=== PATIENT | male | born 1965 | race Caucasian/White ===

== ENCOUNTER 2022-11-10 10:43 | Emergency (ER) | payer OTHER, SELFPAY ==
[2022-11-10 10:45] VITALS: BP 173/97; PULSE 71; RESP 14; TEMP 36.1; O2SAT 97; BMI 27.9
--- NOTE | 2022-11-10 11:12 | MRI_ITS ---
INDICATION: Low back pain with right sided sciatica EXAMINATION: MR Spine Lumbar W/O Contrast TECHNIQUE: Multiplanar and multisequence MR images of the lumbar spine. IV Contrast Dosage and Agent: None. COMPARISON: None. FINDINGS: VERTEBRAE: Vertebral body heights are preserved. Modic type II endplate change and vacuum phenomenon at the L5-S1 level. No marrow edema or fracture. VERTEBRAL ALIGNMENT: No spondylolisthesis. There is preservation of the normal lumbar lordosis. CORD: Normal position and signal intensity of the conus medullaris. Conus terminates normally at the L1-2 disc space level. Cauda equina are intact. SOFT TISSUES: Aorta is normal in caliber. No hydronephrosis. AXIAL IMAGES: L1-2, L2-3: Unremarkable. L3-4: Small left central disc protrusion with left subarticular recess narrowing and mild displacement of the left traversing L4 nerve root. No significant overall spinal canal stenosis. Minimal left foraminal narrowing. L4-5: Diffuse disc bulging. Mild facet hypertrophy and ligamentum flavum thickening. Mild subarticular recess narrowing and spinal canal stenosis. Small endplate osteophyte formation. Mild foraminal narrowing bilaterally. L5-S1: Right central disc protrusion causing compression of the right S1 nerve root. Disc material measures approximately 7.5 mm AP. No significant overall spinal canal compromise. Small endplate osteophyte formation, asymmetric on the right. No significant foraminal narrowing. MRI/Spine Lumbar (Routine) IMPRESSION: L5-S1 disc protrusion with right S1 nerve root impingement. L3-4 disc protrusion with mild mass effect upon the left L4 traversing nerve root. Electronically Signed: Tomas Casas MD at 15:15 EDT ,
--- NOTE | 2022-11-10 11:13 | EDS_ITS ---
HPI History of Present Illness Chief Complaint: Back Detail of Chief Complaint: Low back pain radiating to right buttock and leg. Informant: patient and spouse/S.O. Onset/Context/Timing Onset: Weeks Context: Gradual Onset Quality: Sharp Current Severity: Mild Maximum Severity: Moderate Worsened by: improves with Movement Relieved by: Remaining Still Associated Symptoms Associated Symptoms: Radiation to Right Leg; Negative for Numbness, Tingling, Radiation to Left Leg, Fever, Abdominal Pain, Dysuria, Unable to Ambulate, Unable to Transfer, Urinary Retention, Urinary Incontinence, Constipation or Fecal Incontinence Narrative Narrative: 56-year-old male prior cervical disc history with cervical discectomy and possible fusion. Complaining about a month-long history of lower back pain last several days been increasing in pain with radiation to his right buttock and right leg. No weakness. No numbness. No bowel or bladder incontinence or retention. No prior lower back surgery. Denies any fever. No fall or trauma. Was at the chiropractor today when he went Prior similar symptoms: No Recent Illness/Hospitalization: No PFSH PFSH Home Medications hydrocodone-acetaminophen 5-325mg 5mg-325mg 1 tab PO Q4H PRN PRN Pain 4 days #25 TABLETS 11/10/22 [Rx Last Taken Unknown] prednisone 20 mg tablet 40 mg PO QODAY Lumbar disc 10 days #10 tabs 11/10/22 [Rx Last Taken Unknown] Allergy/AdvReac Type Severity Reaction Status Date / Time No Known Allergies Allergy Verified 11/10/22 10:44 Social History Smoking Status: Current every day smoker tobacco type: cigarettes ROS ROS ED ROS Narrative Low back pain. No recent illness. Review of Systems ROS Unobtainable: Denies due to encephalopathy Constitutional Constitutional ED: Denies chills or fever(s) Eyes Eyes: Denies blurry vision ENT ENT ED: Denies ear pain Cardiovascular Cardiovascular: Denies chest pain or palpitations Respiratory/Chest Respiratory/Chest: Denies dyspnea Gastrointestinal Gastrointestinal: Denies abdominal pain Genitourinary Genitourinary ED: Denies dysuria or hematuria Musculoskeletal Musculoskeletal: Reports back pain; Denies arthralgias, myalgias or neck pain Integumentary Denies abscess or Abrasions Neurologic Neurologic: Denies headache(s) Psychiatric Psychiatric: Denies anxiety Endocrine Endocrinology: Denies cold intolerance Hematologic/Lymphatic Hematologic/Lymphatic: Denies easy bleeding or easy bruising Allergic/Immunologic Allergic/Immunologic ED: Denies mouth swelling or tongue swelling EXAM Physical Exam Narrative Exam Narrative: 56-year-old male vital signs stable afebrile. Does not look septic toxic. at bedside. He is sitting upright in bed. H EENT exam unremarkable. Neck nontender. Trachea midline. Lungs clear to auscultation bilaterally. Heart regular rhythm no murmur. Chest were nontender. Abdomen soft nontender. Back no reproducible back or SI joint tenderness. Normal motor strength and sensation both upper and lower extremities. Negative straight leg raise. Normal medial thigh sensation. 5 out of 5 dorsi and plantarflexion. Neurologically is awake alert with no focal deficits. No weakness or numbness. Const Vital Signs: 11/10/22 10:45 11/10/22 14:06 Temperature 96.9 F L Temperature Source Temporal Pulse Rate 71 Respiratory Rate 14 18 Blood Pressure 173/97 H Blood Pressure Mean 122 Pulse Ox 97 97 Oxygen Delivery Method Room Air Positive well nourished and well developed; Negative for obese, cachectic, contractures or unkempt General Appearance ED: well developed and NAD; Negative for unkempt, cachectic, contractures or pallor Nutritional Appearance: Negative for cachectic or obese HEENT Reports moist mucous membranes; Denies dry mucous membranes Negative for trauma or tenderness Mouth ED: No dry mucous membranes Mouth: No dry mucous membranes Eyes PERRL and EOMs intact bilaterally General Eye ED: Negative for pale conjunctiva or scleral icterus Neck no lymphadenopathy, supple and no JVD General: Negative for tenderness Thyroid: Negative for other Chest Wall Chest: Negative for other Resp normal respiratory effort and clear to auscultation bilaterally Effort and Inspection: Negative for pain with movement Auscultation: Negative for rales, rhonchi or wheezes Cardio regular rate, regular rhythm, S1 normal heart sound, S2 normal heart sound and no murmurs Palpation: Negative for palpable S3 Rate: Negative for bradycardia or tachycardic Rhythm: Negative for abnormal rhythm Bruits: Negative for other GI normal to inspection, nondistended, normoactive bowel sounds, soft to palpation, non-tender, non-distended and no masses Inspection: Negative for abdominal distention Auscultation: Negative for hyperactive bowel sounds Palpation: Negative for tender or guarding Bladder / Kidney Exam: No other Back/Spine normal to inspection and no thoracic nor lumbar tenderness General Back: Negative for CVA tenderness Cervical Spine: Negative for cervical spine tenderness Thoracic Spine / Upper Back: Negative for paraspinal muscle tenderness Lumbar Spine / Lower Back: straight leg raise negative bilaterally; Negative for ROM limited Extremity normal to inspection and no clubbing, cyanosis or edema General Extremety ED: Negative for edema or tenderness General Extremity: Negative for edema Neuro oriented x3 and no sensory deficits noted Sensorium / Orientation: alert; Negative for confused, lethargic or stuporous Motor Exam: strength 5/5 throughout; Negative for strength abnormal Psych mental status grossly normal Appearance: Negative for unkempt Attitude: No agitated Mood & Affect: Negative for depressed, sad or tearful Skin no rashes or lesions noted and no wounds General Skin Exam: Negative for jaundice or pallor Lesions: No lesion noted Rashes: No rashes noted Trauma: Negative for abrasion or puncture Wounds: Negative for wounds noted MDM MDM MDM Narrative Medical decision making narrative: 56-year-old male with history of prior cervical disc with discectomy of his neck. Complaining about a month long history of low back pain getting worse last several days now radiating to his right leg. No weakness or numbness. No bowel or bladder incontinence. 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 He was able to get a specific diagnosis today because he is to be very careful what medications he can and cannot use to continue to drive his truck. I am concerned this may be a lumbar disc. He will be given morphine and Toradol for pain. Zofran. P.o. prednisone. And we are obtaining a lumbar spine without any contrast. That is scheduled for 230. Patient doing well at 315. I we will go over the MRI results of both he and his . To be discharged home with [place] for pain. Prednisone 40 mg a day for 10 days. Follow-up with either his prior neurosurgeon who did his neck disc surgery or Dr. Ester scott of the spine. History & Record Review Discussion w/independent historian: Patient and Significant other Radiography Diagnostic Testing: Clinical Impression(s) from Imaging Studies Lumbar Spine MRI 11/10/22 11:12 IMPRESSION: L5-S1 disc protrusion with right S1 nerve root impingement. L3-4 disc protrusion with mild mass effect upon the left L4 traversing nerve root. Electronically Signed: Tomas Casas MD at 15:15 EDT , MRI shows an L5-S1 disc protrusion with right S1 nerve root impingement which would go along with his symptoms. Also shows an L3-4 disc protrusion with mild mass effect upon the left L4 transverse nerve root. Discharge Plan Triage Chief Complaint: Back ED Provider: Edilson Dick Dx/Rx/DC Orders Clinical Impression: Acute lumbar back pain, Radiculopathy Instructions: ED Back Pain (Acute or Chronic) Prescriptions: New hydrocodone-acetaminophen 5-325 mg tablet 1 tab PO Q4H PRN PRN (Reason: Pain) 4 Days Qty: 25 0RF prednisone 20 mg tablet 40 mg PO QODAY 10 Days Qty: 10 0RF Primary Care Provider: Michaela Rojas Referrals: Robby Solis DO [Med Staff - Active Staff] - As soon as possible Michaela Rojas DO [Primary Care Provider] - Activity Restrictions/Additional Instructions: Call and follow-up with either Dr. Solis or your neurosurgeon soon as possible. Prednisone daily to help decrease the inflammation of the disc to hopefully decrease the pain. [place] for pain. Return if bowel or bladder incontinence, leg weakness or worsening pain. Disposition Disposition: Home, Self Care
[2022-11-10] MEDS: predniSONE 20 MG Tablet 60 MG PO (11:40)
[2022-11-10] MEDS: Ketorolac 30 MG/ML Syringe IV (11:41)
[2022-11-10] MEDS: Ondansetron 4 MG/2 ML Vial IV (11:41)
[2022-11-10] MEDS: morphine 8 MG/ML Syringe IV (11:41)
[2022-11-10] MEDS: morphine 8 MG/ML Syringe 6 MG IV (13:59)
[2022-11-10 14:06] VITALS: RESP 18; O2SAT 97
== END 2022-11-10 15:49 | disposition home or self-care (01) ==
PROVIDERS: Emergency Provider Emergency Medicine; PCP Internal Medicine; Visit Provider Emergency Medicine
DX: M54.50 Low back pain, unspecified (principal); F17.210 Nicotine dependence, cigarettes, uncomplicated; M54.10 Radiculopathy, site unspecified
CPT/HCPCS: 72148; 96374; 96375; 96376; 99282; A4216; J2405

== ENCOUNTER → 2022-11-25 | Outpatient (CLI) | payer OTHER, SELFPAY ==
--- NOTE | 2022-11-25 14:17 | MRI_ITS ---
STUDY: MRI LUMBAR SPINE WITHOUT CONTRAST REASON FOR EXAM: Male, 57 years old. pain -- Patient is having new symptoms coughed last week,,felt a pop, increased pain low back and downrt leg,,trouble walking TECHNIQUE: Standardized fat and water weighted pulse sequences were obtained in the sagittal and axial planes. COMPARISON: X-ray the lumbar spine dated November 12, 2022. MRI of the lumbar spine dated November 10, 2022 FINDINGS: Normal lumbar lordosis. There is no substantial scoliosis. Normal conus medullaris that terminates at the L1 level. No marrow edema or fracture or compression deformity is seen. No aggressive abnormalities are present. T12-L1: Normal endplates. Normal disc height, hydration and morphology. Normal bilateral facet joints. Normal central canal and bilateral lateral recesses. Normal bilateral intervertebral neural foramina. L1-2: Normal endplates. Normal disc height, hydration and morphology. Normal bilateral facet joints. Normal central canal and bilateral lateral recesses. Normal bilateral intervertebral neural foramina. L2-3: Normal endplates. Normal disc height, hydration and morphology. Normal bilateral facet joints. Normal central canal and bilateral lateral recesses. Normal bilateral intervertebral neural foramina. L3-4: Normal endplates mild disc desiccation and mild posterior disc space narrowing with a shallow left paracentral disc protrusion. Normal bilateral facet joints. Normal central canal and bilateral lateral recesses. Normal bilateral intervertebral neural foramina. L4-5: Normal endplates. Mild disc desiccation. Normal disc height and morphology. Mild right facet joint hypertrophy contributing to mild right foraminal stenosis with posterior nerve root impingement. Normal left neural foramen. Normal central canal and bilateral lateral recesses. L5-S1: Moderate Modic endplate degenerative signal. Diffuse disc desiccation with mild disc space narrowing. Interval enlargement of the right paracentral disc extrusion with a large and new amount of extruded material measuring 1.85 x 0.83 x 1.82 cm causing right lateral recess stenosis and severe central canal stenosis with displacement of the thecal sac to the left of midline due to mass effect. . Most of the extruded disc material is confined to the level the intervertebral disc space. Normal bilateral intervertebral neural foramina. Normal visualized sacral ala. Normal visualized paraspinous soft tissue structures. MRI/Spine Lumbar (Routine) IMPRESSION: 1. L5-S1 interval enlargement of the right paracentral disc extrusion with a large and new amount of extruded material measuring 1.85 x 0.83 x 1.82 cm causing right lateral recess stenosis and severe central canal stenosis with displacement of the thecal sac to the left of midline due to mass effect. 2. Multilevel degenerative changes, as described above. Electronically Signed: Malvin Duran MD at 16:13 EDT ,
== END | disposition home or self-care (01) ==
PROVIDERS: PCP Internal Medicine; Referring Provider Orthopaedic Surgery; Visit Provider Orthopaedic Surgery
DX: M51.27 Other intervertebral disc displacement, lumbosacral region (principal)
CPT/HCPCS: 72148

== ENCOUNTER 2022-12-03 10:27 | Observation (INO) | payer OTHER, SELFPAY ==
--- NOTE | 2022-11-25 09:19 | EKG12_ITS ---
Test Reason : PREOP Blood Pressure : / mmHG Vent. Rate : 073 BPM Atrial Rate : 073 BPM P-R Int : 164 ms QRS Dur : 076 ms QT Int : 364 ms P-R-T Axes : 067 066 037 degrees QTc Int : 401 ms Normal sinus rhythm Normal ECG Confirmed by JOSE M HAMM, XOCHILT ([id number]), associate editor SIDNEY MEDELLIN ([id number]) on 11/26/2022 9:03:26 AM Referred By: Jag Pastor Confirmed By:XOCHILT SALGUERO MD
[2022-11-25 10:33] LABS: Absolute Lymphocyte Count 2.03 X10^3/uL (0.83-4.51); Absolute Neutrophil Count 6.7 X10^3/uL (2.0-7.7); Eosinophil# 0.29 X10^3/uL; Eosinophils% 2.9 % (0-5); Hematocrit 47.6 % (40-54); Hemoglobin 16.1 g/dL (13.0-16.5); Lymphocyte # 2.03 X10^3/ul (0.83-4.51); Mean Corp Hgb Conc 33.8 g/dL (32-36); Mean Corpuscular Hgb 30.8 pg (27.0-32.0); Mean Corpuscular Volume 91.2 fL (80-94); Mean Platelet Vol. 11.3 fl (6.2-12.0); Monocyte# 0.92 X10^3/uL; Monocyte% 9.1 % (0-10); NRBC Flagged by Analyzer 0 % (0-5); Neutrophil # 6.68 X10^3/uL (2.7-7.7); Neutrophil % 65.9 % (47-70); Platelet Count 309 K/mm3 (150-450); RBC Distribution Width CV 11.8 % (11.6-14.6); RBC Distribution Width SD 38.9 fl (35.1-43.9); Red Blood Count 5.22 M/mm3 (4.6-6.2); White Blood Count 10.1 K/mm3 (4.4-11.0)
[2022-11-25 10:48] LABS: Magnesium 2.6 mg/dL (1.6-2.6)
[2022-11-25 10:57] LABS: Anion Gap 8 (5-15); BUN 17 mg/dL (7-18); BUN/Creat Ratio 16.3 RATIO (10-20); Calcium,Total 9.3 mg/dL (8.5-10.1); Chloride 104 mmol/L (98-107); Creatinine, Serum 1.04 mg/dL (0.70-1.30); EST Glomerular Filtration Rate 79 mL/min (>60); Est Glom Filt Rate - Afr Amer 95 mL/min (>60); Glucose 95 mg/dL (74-106); Sodium Level 137 mmol/L (136-145)
[2022-11-25 11:34] LABS: HIV - WCH Non-Reactive (Nonreactive); Hepatitis B Surface Antibody Non-Reactive; Hepatitis C Antibody Non-Reactive (Nonreactive)
[2022-11-26 05:07] LABS: Hepatitis A AB, Total Negative (Negative)
--- NOTE | 2022-12-02 10:59 | HP.PCM_ITS ---
History and Physical MR#: [id number] Acct: [id number] Name:? SVITLANA CHIU Rep #: [id number] : 1965 ? ? Provider: Dr. Jag Pastor, DO Age/Sex:? 56/M ? ? Location: [facility] [place] Status: Signed Intake Vital Signs ? 11/10/2309:45 11/12/2308:28 Height 6 ft 3 in 6 ft 3 in Weight: 223 lb 11.2 oz 230 lb 2 oz BMI 27.9 28.8 BP 173/97 H ? Respiration 14 ? Pulse 71 ? Temp 96.9 F L ? Temp Source Temporal ? Pulse Oximetry (%) 97 ? Intake Visit Reasons:?LUMBAR SPINE Is patient in pain?: Yes Pain scale (1-10): 10 Allergies No Known Allergies Allergy (Verified 11/12/22 09:29) Medications hydrocodone-acetaminophen 5-325mg 5mg-325mg 1 tab PO Q4H PRN PRN Pain 4 days #25 TABLETS 11/10/22 [Rx Confirmed 11/12/22] prednisone 20 mg tablet 40 mg PO QODAY Lumbar disc 10 days #10 tabs 11/10/22 [Rx Confirmed 11/12/22] esomeprazole magnesium 20 mg capsule,delayed release 20 mg PO DAILY 11/12/22 [History Confirmed 11/12/22] lactobacillus combination no.4 3 billion cell capsule (Probiotic) 3,000 mmu cells PO DAILY 11/12/22 [History Confirmed 11/12/22] multivitamin 1 tab PO DAILY 11/12/22 [History Confirmed 11/12/22] testosterone 50 mg implant pellet mg implant 11/12/22 [History Confirmed 11/12/22] PFSH Surgical History?(Updated 11/12/22 @ 09:46 by Nayana Escobedo) History of fusion of cervical spine History of shoulder surgery Family History?(Updated 11/12/22 @ 09:48 by Nayana Escobedo) Father Lung cancerMother Heart disease Alzheimer disease Alzheimer's dementia Social History? Smoking Status:? Current every day smoker tobacco type: cigarettes HPI LUMBAR SPINE Details: Parts of this documentation were recorded by a scribe, this documentation accurately reflects the service provided and the decisions made by me, Dr. Jag Pastor, DO 11/12/22 0926. SVITLANA CHIU is a 56 year old M here today NEW patient for lower back pain. His pain started about a month and a half ago. Denies any known injury. States that his pain starts more on the right side of his lower back and goes down his right leg into his foot. He does have numbness and tingling in his leg as well. Denies any previous back surgery. Denies any aggravating factors. He states that his pain is constant and that it is hard form him to stand and sit down. He was recently in the ER on 11/10/22 due to the pain. He has tried using ice and icy hot but they didn't help. He was given Percocet and Prednisone when he was in the ED but it doesn't even touch the pain. Denies PT/HEP. Denies injections in the back. He did have an MRI done when he was at the ED as well. Svitlana is a very pleasant gentleman 56 years old who presents in the company of his Jessy.? The history is well told above by my scribe.? Started insidiously without specific injury.? 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 The prednisone and opioid that he is on does not even touch the pain.? He denies any bowel or bladder dysfunction.? He denies history of unexplained weight loss night fever sweats or chills. ? He has been smoking cigarettes for 33 years.? Overall the pain continues to get worse specially the last week. On examination he has very positive straight leg raising very positive tension signs he can only forward bend few degrees before he has to stop because the severity of the pain.? He has 2+ patellar reflexes bilaterally he has absent Achilles reflexes bilaterally.? He has weakness of the peroneal's on the right side as compared to the left.? Fatigability and weakness of the gastrocnemius muscles on the right as compared to the left.? He even has pain down the leg with extension of his lumbar spine.? He has no long tract signs.? He walks with an obvious limp and he can hardly get around. I reviewed plain x-rays of his lumbar spine and the MRI scan that was done a couple of days ago.? He has an extrusion probably sequestered on the right at L5-S1 consistent with his obvious S1 radiculopathy.? The nerve is trapped bet ween the disc and the bone.? I explained to him and his that that is the reason that he hurts so badly.? It is more the location of the disc than the size of the disc. Obviously he needs surgical intervention as soon as is reasonably possible.? He has 2 neurological deficits.? His pain is intractable.? His pain is not touched by prednisone or oxycodone.? For insurance purposes he is not a candidate in any way for physical therapy or epidural steroid injections.? The only solution is surgical intervention to remove that disc fragment off of the S1 nerve root.? I will see him again at 1 week before surgery here in the clinic. Coding Level of Care Code Off vis,new,level 3 Diagnoses Herniated nucleus pulposus, L5-S1, right? M51.27
[2022-12-03] VITALS (11 sets, daily range): BP systolic 120–139; BP diastolic 71–85; PULSE 58–83; RESP 16–18; TEMP 35.8–37.4; O2SAT 94–100; BMI 27.5
--- NOTE | 2022-12-03 | DISC_PTH ---
PATIENT: SVITLANA CHIU LOC: [facility] U#:[id number] AGE/SX: 57/M ROOM: [facility] – [place] RE12/03/[address]: Dr. Jag Pastor DO : 1965 BED: 1 DIS: 12/04/2022 SPEC #: [id number] RECD: 12/03/22 16:11 STATUS: MAXIMILIANO REQ #: [id number] EL[place]: 12/03/22 00:[address]: Jag Pastor DEPT: SURGICAL PATHOLOGY RECD BY: Duane Mclean ENTERED: 12/04/22 09:00 SP TYPE: DISC OTHR DR: MD Dr. Lennie Blanchard MD Dr. Autumn L White, MD Dr. Mary Catherine Sementi, DO MD Dudley Linares MD Dr. Eric Jopperi, DO MD Dr. Angel Luis Lynne MD Dr. James Mooney, MD Dr. Jonathan Vogt, DO Dr. Michaela Rojas, DO Dr. Kimberly Huerta, DO Dr. Abdirahman Wan, DO MD Dr. Guilherme Linda MD Dr. Paul Nielsen, MD Dr. Paige Pierce, MD Dr. Ryan Burkholder, MD Jessica Franklin, ALICE-DIDI Simon Tissues: Intervertebral disc, NOS Procedures: Surgery Specimen Level III HEADER OPERATION: ERAS, lumbar laminectomy L5-S1, neuromonitoring PRE-OP DIAGNOSIS: Right herniated nucleus pulposus L5-S1 TISSUE SUBMITTED: Right L5-S1 lumbar discs MICROSCOPIC DIAGNOSIS Right L5-S1 lumbar disc, laminectomy: Fragments of fibrocartilaginous tissue with degenerative changes, fibroadipose and fibroconnective tissue. THIAGO:jamie 12/07/2022 MICROSCOPIC DESCRIPTION Slides are reviewed. GROSS DESCRIPTION Received in fixative is one container labeled with the patient's name and designated right L5-S1 lumbar discs. The specimen consists of multiple pieces of charles, indurated tissue that in aggregate measure 2.5 x 2.5 x 1.0 cm. The larger pieces are bisected. The entire specimen is submitted in one cassette. / THIAGO:jamie 12/04/2022 TC:5 CPT: 30208
[2022-12-03] MEDS: Acetaminophen 500 MG Tablet 1000 MG PO ×3 (07:29→23:10)
[2022-12-03] MEDS: Magnesium 1 GM over 15 mins IV (07:29)
[2022-12-03] MEDS: Lactated Ringers 1,000 ML 15 ML IV (07:30)
[2022-12-03 07:51] LABS: Bedside Glucose 90 mg/dL (74-106)
[2022-12-03] MEDS: Cefazolin 2 GM in 0.9% Normal Saline 100 ML IV (08:07)
--- NOTE | 2022-12-03 09:00 | RAD_ITS ---
STUDY: X-RAY - LUMBAR SPINE REASON FOR EXAM: Male, 57 years old. Intraprocedural/intraoperative documentation image. TECHNIQUE: A single lateral view(s) of the lumbar spine were obtained. COMPARISON: None FINDINGS: A single lateral view shows surgical instrument placed at the L4-5 interspace posteriorly. Diffuse lumbar sacral spondylosis unchanged. Stable vascular calcification. RAD/Spine 1 View Any Level IMPRESSION: Intraoperative documentation images described. Electronically Signed: Williams Israel MD at 11:19 EDT ,
[2022-12-03] MEDS: THROMBIN (RECOMBINANT) 20,000 UNIT VIAL 20000 UNIT TOPICAL (09:52)
--- NOTE | 2022-12-03 10:32 | OP.PCM_ITS ---
Report of Operation Description of Surgical Findings:: Preoperative diagnosis: Herniated disc L5-S1 with severe right S1 radiculopathy Postoperative diagnosis: The same Procedure: Lumbar laminectomy discectomy L5-S1 on the right CPT code 00927 Surgeon: Dr. Pastor Soda Dispenser: Romi Mijares NP Anesthesia: General endotracheal by [facility] EBL: 25 cc Drains: None Complications: None Procedure: Patient was taken to the OR where he was placed under general endotracheal anesthesia. A Armando catheter was inserted. Neuro monitoring placed her leads on the patient. The patient was then moved onto the prone position on the Abdirahman frame. After appropriate positioning with care to protect his bony prominences his genitalia the ulnar nerves of both elbows the brachial plexus and the facial features the back was prepped and draped in standard fashion. I then made a longitudinal incision centered centered over L5-S1. Subcutaneous tissues were incised the length of the skin incision. I opened the lumbar fascia to the right of the spinous processes elevated paravertebral muscles off the lamina of S1 and the lamina of L5. An intraoperative x-ray was taken with a marker placed that confirmed that we were at the right level. A Valentine retractor was then put in place. I then elevated the ligamentum flavum off the underside of the lamina of L5 on the right. The laminectomy was carried out with 45 degree Kerrison rongeurs and double-action rongeurs. I then used a hockey-stick to place under the ligamentum flavum near his midline and I cut the ligamentum flavum over the top of the hockey-stick. Then released it off the top of the L5 lamina also. I then removed it with 45 degree Kerrison rongeurs all the way out to the lateral recess. I was then able to retract the dura to the midline note that I had to work in the axilla of the nerve root and I was able to find the of 3 very large fragments of disc. These were removed. Bleeding was controlled with bipolar cautery and thrombin-soaked Gelfoam. Possible other smaller pieces were likewise removed with pituitary rongeurs. Noted to be thoroughly irrigated with copious muscle sterile saline every 10 to 50 minutes in the course of the case to prevent infection. We were done we had excellent hemostasis. We placed an amniotic membrane directly over the nerve root and the dura to prevent adhesions in the future. Gelfoam was placed over the top of that. No drain was needed as her blood loss was quite low. I closed the lumbar fascia using [id number] suture with #1 Vicryl followed by closure of the subcutaneous tissues in layers with 2-0 Vicryl in interrupted fashion and skin was approximated using skin clips. Sterile dressings were then applied. The patient was then recovered in the OR he was moved to his hospital bed and taken to recovery in satisfactory condition. This interoperative summary on Erick Grijalva. This is Dr. Pastor dictating.
[2022-12-03] MEDS: Lactated Ringers 1,000 ML 100 ML IV (11:02)
[2022-12-03] MEDS: diazePAM 5 MG Tablet PO ×2 (12:37→18:25)
--- NOTE | 2022-12-03 13:55 | PCM.CONS.GEN ---
Assessment & Plan Assessment/Plan (1) Herniated nucleus pulposus, L5-S1, right: PLAN: Plan This 57-year-old gentleman being admitted for herniated disc L5-S1 with severe right S1 radiculopathy. 1. Herniated disc L5-S1 with severe right S1 radiculopathy: Patient had lumbar laminectomy and discectomy L5-S1 on the right side on 12/03/2022. Pain controlled. Surgical dressing is dry. No palpable hematoma or bruise near surgical site. PT and OT ordered. Incentive spirometry and Pep. DVT prophylaxis as per discretion of surgeon. Patient has Armando catheter in draining clear urine. 2. Chronic back pain/lumbar arthritis, history of cervical spine fusion surgery and shoulder surgery: 3. Chronic smoker: 33 pack years of smoking. Patient counseled to stop quitting smoking. 4. History for steroid therapy: Patient on testosterone 700 mg oral daily. HPI Consult Data Date of Consult: 12/03/22 HPI Narrative HPI Narrative: SVITLANA CHIU, is a 57 M who is admitted after elective lumbar laminectomy and discectomy L5-S1 on the right side for herniated disc L5-S1 with severe right S1 radiculopathy. Patient has history of right-sided lumbar back pain with radiation to right lower extremity going all the way to right foot on lateral side, along S1 distribution for 1-1/2 months. Patient also has numbness and tingling for about 2 weeks mainly over right buttock area, anterior lateral thigh and groin/perineal region. Patient has difficulty in bowel emptying/defecation but he had sensation for rectal fullness. Patient has intact bladder function with sensation of fullness and emptying. He failed pain medication prednisone, PT and other conservative measures therefore taken for surgery today. Did not had injections in the back. Denies history of hypertension, diabetes mellitus, chronic heart disease or lung disease. Denies any external injury or trauma. Social history: Smokes cigarettes, 33 pack years of smoking. Patient has active lifestyle playing basketball and football and is now on golf. [facility] Medical History Alcohol use Back pain History of edema History of pain when walking History of steroid therapy Smoker Home Medications lactobacillus combination no.4 3 billion cell capsule (Probiotic) 3,000 mmu cells PO DAILY 11/12/22 [History Last Taken Unknown] multivitamin 1 tab PO DAILY 11/12/22 [History Last Taken Unknown] ibuprofen 600 mg tablet 600 mg PO Q8H PRN Pain 11/20/22 [History Last Taken Unknown] testosterone undecanoate 200 mg capsule 700 mg PO DAILY 11/20/22 [History Last Taken Unknown] Allergy/AdvReac Type Severity Reaction Status Date / Time No Known Allergies Allergy Verified 12/03/22 06:45 Family History Father Lung cancer Mother Heart disease Alzheimer disease Alzheimer's dementia Surgical History History of fusion of cervical spine History of shoulder surgery Social History Smoking Status: Current every day smoker tobacco type: cigarettes ROS ROS Narrative Constitutional: Chronic back pain as described in HPI. No fever. HEENT: Reports systems reviewed and no addt'l complaints, except as documented Respiratory/Chest: No acute shortness of breath or respiratory distress or wheezing. CVS: Denies chest pain/pressure. Gastrointestinal: Denies coffee ground emesis, hematemesis or vomiting Genitourinary: Denies burning urination or new urinary tract symptoms Musculoskeletal: As described in HPI. Neurologic: Denies seizure-like symptoms. Numbness tingling neuropathy symptoms along S1 distribution. skin: No ulcer. No rash Endocrinology: Testosterone on his home med list. Reports systems reviewed and no addt'l complaints, except as documented Hematologic/Lymphatic: Reports systems reviewed and no addt'l complaints, except as documented Rest 14 ROS are negative except as mentioned in HPI Physical Exam Narrative General: Alert, Oriented x3, Cooperative HEENT: Atraumatic, PERRLA, EOMI, Normocephalic Oral: Oral mucosa moist. No Gingival or Mucosal Lesions/ Ulcerations Neck: Supple, No JVD, Negative Carotid Bruits Lungs: Air entry diminished in bilateral lung bases. No crepitation/rhonchi Cardiovascular: Regular rate, Regular Rhythm, Normal S1, Normal S2, No murmurs Abdomen: Bowel Sounds Present, Soft, Non Tender, Non-Distended : No renal angle tenderness. No suprapubic tenderness. Extremities: No edema, Capillary Refill Less than 3 Seconds Skin: No rashes, No breakdown Musculoskeletal: No Tenderness to Palpation of Joints or Extremities. ROM intact. Back/spine: Surgical dressing over lumbar area intact. ROM restricted over lumbar spine Neurological: Cranial nerves II-XII grossly intact, DTR 2+/4. Decreased sensation over right buttock and anterior lateral thigh to touch and pressure. Psych/Mental Status: Normal Affect, Appropriate. Lab / Micro Data Result Diagrams: 11/25/22 09:34 11/25/22 09:34 Labs: Laboratory Results - last 24 hr 12/03/22 07:05: POC Glucose 90 Radiology Impression Spine X-Ray 12/03/22 09:00 IMPRESSION: Intraoperative documentation images described. Electronically Signed: Williams Israel MD at 11:19 EDT , Charges/Coding Visit Charges Office Visits / Consults: [id number] OP Consult L4
[2022-12-03] MEDS: oxyCODONE 5 MG Tablet PO ×3 (13:57→23:10)
[2022-12-03] MEDS: Cefazolin 1 GM/50 ML BAG IV ×2 (15:54→23:10)
[2022-12-03] MEDS: Morphine 4 MG/ML Syringe IV (20:01)
[2022-12-03] MEDS: 0.9% Saline Lock 10 ML Syringe IV (23:59)
[2022-12-04] MEDS: Morphine 4 MG/ML Syringe IV (03:38)
[2022-12-04] MEDS: diazePAM 5 MG Tablet PO (03:39)
[2022-12-04] MEDS: 0.9% Saline Lock 10 ML Syringe IV (03:39)
[2022-12-04 03:50] VITALS: BP 144/82; PULSE 69; RESP 16; TEMP 36.6; O2SAT 94
[2022-12-04 06:06] LABS: Absolute Lymphocyte Count 1.62 X10^3/uL (0.83-4.51); Basophil# 0.04 X10^3/uL; Basophil% 0.2 % (0-1); Eosinophil# 0.06 X10^3/uL; Eosinophils% 0.3 % (0-5); Hematocrit 39.6 % (40-54); Hemoglobin 13.3 g/dL (13.0-16.5); Lymphocyte # 1.62 X10^3/ul (0.83-4.51); Lymphocyte % 8.5 % (19-41); Mean Corp Hgb Conc 33.6 g/dL (32-36); Mean Corpuscular Hgb 30.7 pg (27.0-32.0); Mean Corpuscular Volume 91.5 fL (80-94); Mean Platelet Vol. 11.1 fl (6.2-12.0); Monocyte# 1.21 X10^3/uL; Monocyte% 6.3 % (0-10); NRBC Flagged by Analyzer 0 % (0-5); Neutrophil # 16.04 X10^3/uL (2.7-7.7); Platelet Count 298 K/mm3 (150-450); RBC Distribution Width CV 11.6 % (11.6-14.6); RBC Distribution Width SD 38.6 fl (35.1-43.9); Red Blood Count 4.33 M/mm3 (4.6-6.2); White Blood Count 19.1 K/mm3 (4.4-11.0)
[2022-12-04 06:32] LABS: Anion Gap 7 (5-15); BUN 15 mg/dL (7-18); BUN/Creat Ratio 15.7 RATIO (10-20); Calcium,Total 8.6 mg/dL (8.5-10.1); Chloride 104 mmol/L (98-107); Creatinine, Serum 0.95 mg/dL (0.70-1.30); EST Glomerular Filtration Rate 87 mL/min (>60); Est Glom Filt Rate - Afr Amer 105 mL/min (>60); Estimated Creatinine Clearance 105.01 ml/min; Glucose 156 mg/dL (74-106); Sodium Level 137 mmol/L (136-145)
[2022-12-04] MEDS: oxyCODONE 5 MG Tablet PO ×2 (08:51→09:55)
[2022-12-04] MEDS: Acetaminophen 500 MG Tablet 1000 MG PO ×2 (08:51→14:54)
--- NOTE | 2022-12-04 10:48 | CASEMGMT ---
Addendum entered by Deirdre Han 12/04/22 14:45: TC to [facility] pharmacy, spoke with Sameer, requested meds be delivered to the room. Answered pt questions, he is ready for dc. Original Note: NAZARIO AYERS Assessment: Face to Face with pt for initial transition planning/care coordination assessment. NAZARIO AYERS introduced self and role at [facility], pt voices understanding and consents to assessment. Pt is A/O x4 and answers all questions appropriately at this time. Pt sitting up in bed in no distress. Care providers, pharmacy, and demographics verified/updated. Admitting Dx: lumbar laminectomy L5-S1 neuromonitoring PCP:Bob Specialists:fletcher Pastor Pharmacy: [facility] Insurance: [employer] Prescription Benefit: yes LNOK: Jessy Grijalva, Living Arrangements: Pt lives with and two dtrs in a two story home with 2 steps to enter without a rail. Pt reports he was I in ADL's prior to surgery. Pt denies concerns at home. Transportation: Pt drives self and denies concerns with transportation. Pt able to transport him until he can drive again. DME/HHC/SNF: Pt is borrowing a FWW at home to use. Pt denies hx of HHC or SNF stays. Pt states no concerns with going home at time of dc. Pt would like his meds to be delivered to the room once he is dc'd. Pt states no further concerns/needs. CM to follow. Advised pt to ask CM if any further question/concerns/needs arise, voices understanding. Pt Goal: Home Plan: Home
[2022-12-04 13:15] VITALS: BP 139/82; PULSE 68; RESP 18; TEMP 36.6; O2SAT 97
--- NOTE | 2022-12-04 14:36 | DCINST_ITS ---
Discharge Instructions Activity May shower in (days): 4 Weight Bearing Status: Full weight bearing Lifting Restrictions: 15# Dressing / Incision Remove Dressing in: 3 days Follow Up Care Test Results: Test results from this visit will be discussed in further detail at your follow- up appointment, if applicable. Discharge Plan Admission Admit Date/Time: 12/03/22 10:27 Primary Reason for Your Visit: back surgery Attending Provider: Jag Pastor Primary Care Provider: Michaela Rojas Consulting Providers: Lennie Coughlin ; Lennie Bagley ; Katia Whitman ; Dorothy Jiménez ; Suleiman Blanc ; Dudley Ruiz ; Miki Lovett ; Sang Tovar ; Angel Luis Yap ; Berry Rueda ; Preet Restrepo ; Kimberly Huerta ; Abdirahman Wan ; Essence Kendall ; Guilherme Hickman ; Tomas Avelar ; Darcy Carroll ; Braulio Mitchell ; Zoey Salinas NP ; Christiano Veliz Discharge Orders/Prescriptions Prescriptions: No Action multivitamin Tablet 1 tab PO DAILY Probiotic 3 billion cell capsule 3,000 mmu cells PO DAILY Rx Instructions: administer with a meal ibuprofen 600 mg Tablet 600 mg PO Q8H PRN (Reason: Pain) testosterone undecanoate 200 mg Capsule 700 mg PO DAILY oxycodone-acetaminophen 10-325 mg tablet 1 tab PO Q6H PRN (Reason: pain) 10 Days Qty: 40 0RF Referrals / Follow Up: Michaela Rojas DO [Primary Care Provider] - Disposition Disposition (needs filled in before D/C Order can be placed): Home, Self Care
--- NOTE | 2022-12-04 14:37 | PCM.DC.SUM ---
Providers Date of Admission: 12/03/22 Primary Care Physician: Dr. Michaela Rojas DO Attending Physician: This is discharge summary on Erick Grijalva. This patient was admitted yesterday for lumbar laminectomy discectomy L5-S1 on the right side. Tolerated the procedure well. Today's postop day #1 and is doing well. His leg pain is all gone. His back pain is tolerable. His dressing is dry at this time. I gave him and his directions regarding removal of the dressing in 3 days and showering in 4 days. May start driving a car in 2 weeks. He already has an appointment to see me on 15 December. This is the end of discharge summary on Erick Grijalva. This is Dr. Pastor dictating. Consultations 12/03/22 10:46 Consult: Hospitalist Routine Consulting Provider: [facility] Reason for Consult: Medical Management EMERGENT Consult: No MD Notified: Yes Date Notified: 12/03/22 Time Notified: 12:01 Method of Notification: Text Reason For Visit: LUMBAR LAMINECTOMY L5-S1 NEUROMONITORING Diagnosis Discharge Diagnosis (1) Herniated nucleus pulposus, L5-S1, right: Status: Acute Code(s): M51.27 - Other intervertebral disc displacement, lumbosacral region Medications at Discharge Home Medications lactobacillus combination no.4 3 billion cell capsule (Probiotic) 3,000 mmu cells PO DAILY 11/12/22 multivitamin 1 tab PO DAILY 11/12/22 ibuprofen 600 mg tablet 600 mg PO Q8H PRN Pain 11/20/22 testosterone undecanoate 200 mg capsule 700 mg PO DAILY 11/20/22 oxycodone-acetaminophen 10 mg-325 mg tablet 1 tab PO Q6H PRN pain 10 days #40 tabs 12/04/22 Weight / BMI Weight Weight: 220 lb 7.396 oz Body Mass Index (BMI) 27.5 ABG / Lab / Microbiology Data Result Diagrams: 12/04/22 05:40 12/04/22 05:40 Laboratory: Laboratory Results - last 24 hr 12/04/22 05:40: WBC 19.1 H, RBC 4.33 L, Hgb 13.3, Hct 39.6 L, MCV 91.5, MCH 30.7, MCHC 33.6, RDW Std Deviation 38.6, RDW Coeff of Carlee 11.6, Plt Count 298, MPV 11.1, Immature Gran % (Auto) 0.700, Neut % (Auto) 84.0 H, Lymph % (Auto) 8.5 L, [place] % (Auto) 6.3, Eos % (Auto) 0.3, Baso % (Auto) 0.2, Absolute Neuts (auto) 16.0 H, Absolute Lymphs (auto) 1.62, Nucleated RBC % 0 12/04/22 05:40: Sodium 137, Potassium 4.0, Chloride 104, Carbon Dioxide 26.0, Anion Gap 7, BUN 15, Creatinine 0.95, Estim Creat Clear Calc 105.01, Est GFR (MDRD) Af Amer 105, Est GFR (MDRD) Non-Af 87, BUN/Creatinine Ratio 15.7, Glucose 156 H, Calcium 8.6 Microbiology: Microbiology 11/25/22 09:34 Swab (Method) Nasal Screen MRSA/MSSA - Final D/C Instructions May shower in (days): 4 Weight Bearing Status: Full weight bearing Meaningful Use Info Meaningful Use Diagnoses (Choose all that apply): None applicable Discharge Plan Admission Admit Date/Time: 12/03/22 10:27 Primary Reason for Your Visit: back surgery Attending Provider: Jag Pastor Primary Care Provider: Michaela Rojas Consulting Providers: Lennie Coughlin ; Lennie Bagley ; Katia Whitman ; Dorothy Jiménez ; Suleiman Blanc ; Dudley Ruiz ; Miki Lovett ; Sang Tovar ; Angel Luis Yap ; Berry Rueda ; Preet Restrepo ; Kimberly Huerta ; Abdirahman Wan ; Essence Kendall ; Guilherme Hickman ; Tomas Avelar ; Darcy Carroll ; Braulio Mtichell ; Zoey Salinas HAND STONE POLISHER ; Christiano Veliz PA Discharge Orders/Prescriptions Prescriptions: No Action multivitamin Tablet 1 tab PO DAILY Probiotic 3 billion cell capsule 3,000 mmu cells PO DAILY Rx Instructions: administer with a meal ibuprofen 600 mg Tablet 600 mg PO Q8H PRN (Reason: Pain) testosterone undecanoate 200 mg Capsule 700 mg PO DAILY oxycodone-acetaminophen 10-325 mg tablet 1 tab PO Q6H PRN (Reason: pain) 10 Days Qty: 40 0RF Referrals / Follow Up: Michaela Rojas DO [Primary Care Provider] - Disposition Disposition (needs filled in before D/C Order can be placed): Home, Self Care
[2022-12-04] MEDS: oxyCODONE 5 MG Tablet 10 MG PO (14:54)
--- NOTE | 2022-12-04 15:58 | PHA.DC.MR ---
Pharmacy Service has performed discharge medication reconciliation for this patient. Home Medications lactobacillus combination no.4 3 billion cell capsule (Probiotic) 3,000 mmu cells PO DAILY 11/12/22 multivitamin 1 tab PO DAILY 11/12/22 ibuprofen 600 mg tablet 600 mg PO Q8H PRN Pain 11/20/22 testosterone undecanoate 200 mg capsule 700 mg PO DAILY 11/20/22 oxycodone-acetaminophen 10 mg-325 mg tablet 1 tab PO Q6H PRN pain 10 days #40 tabs 12/04/22 The patient's discharge medication list was reviewed for discrepancies and discrepancies were resolved.
== END 2022-12-04 13:55 | disposition home or self-care (01) ==
LOC: SDC 11:01 → MS3 11:01
PROVIDERS: Anesthesiology; Internal Medicine; Admitting Provider Orthopaedic Surgery; PCP Internal Medicine; Referring Provider Orthopaedic Surgery; Visit Provider Orthopaedic Surgery
PROC: (CPT 63030; principal; 2022-12-03 07:30)
DX: M51.27 Other intervertebral disc displacement, lumbosacral region (principal); F17.210 Nicotine dependence, cigarettes, uncomplicated; M54.18 Radiculopathy, sacral and sacrococcygeal region; G89.29 Other chronic pain; Z79.890 Hormone replacement therapy
CPT/HCPCS: 63030; 00630; 36415; 72020; 80048; 82962; 83735; 85025; 86703; 86706; 86708; 86803; 87081; 88304; 93005; 94668; 96365; 96366; 96375; 96376; 97162; 97530; 99221; 99252; 99406; J7120; A4216; G0378; G0463; J2405; J3475

== ENCOUNTER → 2023-02-08 | Outpatient (CLI) | payer OTHER, SELFPAY ==
[2023-02-08 12:21] LABS: Absolute Lymphocyte Count 1.95 X10^3/uL (0.83-4.51); Absolute Neutrophil Count 4.2 X10^3/uL (2.0-7.7); Basophil# 0.11 X10^3/uL; Basophil% 1.5 % (0-1); Eosinophil# 0.29 X10^3/uL; Hematocrit 44.7 % (40-54); Hemoglobin 14.9 g/dL (13.0-16.5); Lymphocyte # 1.95 X10^3/ul (0.83-4.51); Lymphocyte % 26.6 % (19-41); Mean Corp Hgb Conc 33.3 g/dL (32-36); Mean Corpuscular Hgb 30.7 pg (27.0-32.0); Mean Corpuscular Volume 92.2 fL (80-94); Mean Platelet Vol. 11.2 fl (6.2-12.0); Monocyte# 0.71 X10^3/uL; Monocyte% 9.7 % (0-10); NRBC Flagged by Analyzer 0 % (0-5); Neutrophil # 4.22 X10^3/uL (2.7-7.7); Neutrophil % 57.5 % (47-70); Platelet Count 302 K/mm3 (150-450); RBC Distribution Width CV 12.3 % (11.6-14.6); RBC Distribution Width SD 41.5 fl (35.1-43.9); Red Blood Count 4.85 M/mm3 (4.6-6.2); White Blood Count 7.3 K/mm3 (4.4-11.0)
[2023-02-08 12:53] LABS: Vitamin D,25 Hydroxy 54.9 ng/mL
[2023-02-08 12:59] LABS: ALB/GLOB Ratio 1.2 RATIO (0.9-2.4); AST(SGOT) 18 U/L (15-37); Alanine Aminotransfer ALT/SGPT 36 U/L (16-61); Alkaline Phosphatase 83 U/L (45-117); Anion Gap 5 (5-15); BUN 17 mg/dL (7-18); BUN/Creat Ratio 16.8 RATIO (10-20); Calcium,Total 8.8 mg/dL (8.5-10.1); Chloride 106 mmol/L (98-107); Cholesterol 230 mg/dL (200); Creatinine, Serum 1.01 mg/dL (0.70-1.30); EST Glomerular Filtration Rate 81 mL/min (>60); Est Glom Filt Rate - Afr Amer 99 mL/min (>60); Globulin 3.3 g/dL (2.2-4.2); Glucose 87 mg/dL (74-106); High Density Lipoprotein 42 mg/dL; PSA,Total - Annual Screen 0.77 ng/mL (0.00-4.00); Potassium 3.7 mmol/L (3.5-5.1); Protein, Total 7.3 g/dL (6.4-8.2); Sodium Level 136 mmol/L (136-145); Thyroid Stim Hormone (TSH) 1.94 uIU/mL (0.358-3.74); Triglycerides 160 mg/dL; Very Low Density Lipoprotein 32 mg/dL (5-40)
[2023-02-08 13:03] LABS: Hemoglobin A1c 5.3 % (3.8-5.6)
== END | disposition home or self-care (01) ==
LOC: LAB 11:17
PROVIDERS: PCP Internal Medicine; Referring Provider Internal Medicine; Visit Provider Internal Medicine
DX: Z00.00 Encounter for general adult medical examination without abnormal findings (principal); Z13.220 Encounter for screening for lipoid disorders; E55.9 Vitamin D deficiency, unspecified; R73.9 Hyperglycemia, unspecified; Z12.5 Encounter for screening for malignant neoplasm of prostate
CPT/HCPCS: 36415; 80053; 80061; 82306; 83036; 84153; 84443; 85025; G0103

== ENCOUNTER 2023-02-19 07:56 | Day surgery (SDC) | payer OTHER, SELFPAY ==
[2023-02-19 08:19] VITALS: BP 128/72; PULSE 68; RESP 16; TEMP 36.6; O2SAT 97; BMI 27.4
[2023-02-19] MEDS: Lactated Ringers 1,000 ML 15 ML IV (08:23)
--- NOTE | 2023-02-19 09:00 | COLBX_PTH ---
PATIENT: SVITLANA CHIU [place] [facility] [id number] AGE/SX: 57/M ROOM: RE02/19/[address]: Dr. Kieran Stiles MD : 1965 BED: DIS: 02/19/2023 SPEC #: [id number] RECD: 02/19/23 14:05 STATUS: MAXIMILIANO NIELSEN #: [id number] ELTON: 02/19/23 09:[address]: Kieran Stiles DEPT: SURGICAL PATHOLOGY RECD BY: Christiane Orr ENTERED: 02/22/23 07:28 SP TYPE: COLON BX OTHR DR: Dr. Anne Jarquin MD Tissues: Sigmoid colon biopsy Procedures: Surgery Specimen Level IV HEADER OPERATION: Colonoscopy - open access with polypectomy PRE-OP DIAGNOSIS: Screening TISSUE SUBMITTED: Sigmoid polyps MICROSCOPIC DIAGNOSIS Sigmoid colon polyps, biopsy: Tubular adenoma. Fragments of hyperplastic polyp. AM:jamie 02/23/2023 MICROSCOPIC DESCRIPTION Slides are reviewed. GROSS DESCRIPTION Received in fixative is one container labeled with the patient's name and designated sigmoid polyps. The specimen consists of multiple irregular fragments of light charles soft tissue that in aggregate measure 0.7 x 0.5 x 0.1 cm. The specimen is totally submitted in one cassette. / AM:jamie 02/22/2023 TC:5 CPT: 41349
--- NOTE | 2023-02-19 09:07 | HP.PCM_ITS ---
HPI - General HPI Narrative SVITLANA CHIU, is a 57 M who presents for screening colonoscopy. Patient is never had a colonoscopy in the past. He denies abdominal pain or blood in the stool. He has no family history of colon cancer. PFSH Medical History Alcohol use Back pain Chewing tobacco nicotine dependence History of edema History of pain when walking History of steroid therapy Smoker Home Medications lactobacillus combination no.4 3 billion cell capsule (Probiotic) 3,000 mmu cells PO DAILY 11/12/22 [History Last Taken Unknown] multivitamin 1 tab PO DAILY 11/12/22 [History Last Taken Unknown] testosterone undecanoate 200 mg capsule 700 mg PO DAILY 11/20/22 [History Last Taken Unknown] magnesium oxide 400 mg (241.3 mg magnesium) tablet 400 mg PO DAILY 01/12/23 [History Last Taken Unknown] Allergy/AdvReac Type Severity Reaction Status Date / Time No Known Allergies Allergy Verified 02/19/23 08:14 Family History Father Lung cancer Mother Heart disease Alzheimer disease Alzheimer's dementia Surgical History (Updated 02/18/23 @ 08:27 by Oly Roberto) History of fusion of cervical spine History of lumbar laminectomy History of shoulder surgery History of tonsillectomy Social History adopted: No household members: spouse housing: house number of children: 4 current occupational status: employed 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 current occupational exposures/hazards: No pets and animals: Yes leisure activities: sports, exercise, hunting, fishing and other history of recent travel: Yes sexually active: Yes Smoking Status: Current every day smoker tobacco type: cigarettes and smokeless tobacco alcohol intake: current details: 12 pack a month substance use type: does not use well-balanced diet: daily or most days caffeine: Yes eating out: rarely or never during the past year weight has: increased > 10 lbs what type of physical activity do you participate in: walking and weight training frequency: daily yaneth/pentecostalism: Christianity seatbelt use: always do you feel safe at home: Yes Past Medical/Surgical History Planned Operation Planned Operative Procedure/s: COLONOSCOPY Previous Hospitalizations/Surgeries HX Hospitalizations: Yes (12/03/22 BACK SURGERY) Any Problems With Anesthesia: No You/Your Family Experience Fever (Hyperthermia) With Anes: No Cholinesterase deficiency: No Cardiovascular Hx Hypertension: No Respiratory Hx Sleep Apnea: No CPAP: No Hx Respiratory Tract Infection/Cold (presently): No Do You Snore Loudly (louder than talking or can be heard): No Do You Often Feel Tired/ Fatigued/ Sleepy Dring Daytime?: No Has Anyone Observed You Stop Breathing During Sleep?: No Result (for STOP score): Negative Smoking Status: Current every day smoker Neurological Hx Back Injury/Pain: Yes Does patient have nerve stimulator: No Musculoskeletal Hx Arthritis: Yes Miscellaneous Recent Exposure to Contagious Disease: No Allergies No Known Allergies Allergy (Verified 02/19/23 08:14) Discharge Is Pt Admitted From a [facility], or a [facility]: No Who Could Help: FAMILY After D/C, Where Do you Plan to Go: Return Home Vital Signs Vital Signs Vital Signs: 02/19/23 08:19 02/19/23 08:19 Temperature 97.8 F Temperature Source Temporal Pulse Rate 68 Respiratory Rate 16 Respiratory Pattern Normal Blood Pressure 128/72 H Blood Pressure Mean 90 Blood Pressure Source Monitor Blood Pressure Position Sitting Blood Pressure Location Left Arm Pulse Ox 97 Oxygen Delivery Method Room Air Weight Weight: 219 lb 12.814 oz Body Mass Index (BMI) 27.4 Physical Exam Const alert and oriented x3 HEENT normocephalic Eyes PERRL Resp normal respiratory effort and normal air movement Cardio regular rate and regular rhythm GI soft to palpation, non-tender and non-distended Extremity normal to inspection Assessment & Plan Assessment/Plan (1) Encounter for screening for malignant neoplasm of colon: PLAN: I explained endoscopy in detail to the patient. I explained the risks including but not limited to stroke or heart attack with anesthesia, perforation of the GI tract, bleeding, infection. I explained that any of these could necessitate further emergency surgery. The patient understands and all questions were answered sufficiently. The patient wishes to proceed with procedure. Kieran Stiles MD Pager: [facility] [address] [place] [address], [address] [place] [address] Office: Surgery Risks - Colonoscopy Risks Include but are not Limited To: Risks include but are not limited to: Bleeding, perforation requiring further surgery, inability to complete colonoscopy requiring barium enema.
--- NOTE | 2023-02-19 09:34 | OP.COLON_ITS ---
Patient Name: Erick Grijalva Procedure Date: 02/19/2023 9:11 AM Date of : 1965 Age: 57 Procedure: Colonoscopy Indications: Screening for colorectal malignant neoplasm Providers: Kieran Stiles MD Medicines: Monitored Anesthesia Care Patient Profile: This is a 57 year old male. Refer to note in patient chart for documentation of history and physical. Last Colonoscopy: none. The patient's first colonoscopy is today. Complications: No immediate complications. Procedure: Pre-Anesthesia Assessment: - Prior to the procedure, a History and Physical was performed, and patient medications and allergies were reviewed. The patient's tolerance of previous anesthesia was also reviewed. The risks and benefits of the procedure and the sedation options and risks were discussed with the patient. All questions were answered, and informed consent was obtained. Prior Anticoagulants: The patient has taken no anticoagulant or antiplatelet agents. After reviewing the risks and benefits, the patient was deemed in satisfactory condition to undergo the procedure. After I obtained informed consent, the scope was passed under direct vision. Throughout the procedure, the patient's blood pressure, pulse, and oxygen saturations were monitored continuously. The Colonoscope was introduced through the anus and advanced to the cecum, identified by appendiceal orifice and ileocecal valve. The colonoscopy was performed without difficulty. The patient tolerated the procedure well. The quality of the bowel preparation was good. The ileocecal valve, appendiceal orifice, and rectum were photographed. Scope In: 9:18:32 AM Scope Withdrawal Time 0 hours 7 minutes 16 seconds Scope Out: 9:32:17 AM Total Procedure Duration Time 0 hours 13 minutes 45 seconds Findings: Two polyps were found in the sigmoid colon. The polyps were small in size. These polyps were removed with a hot snare. Resection and retrieval were complete. The exam was otherwise without abnormality on direct and retroflexion views. Impression: - Two small polyps in the sigmoid colon, removed with a hot snare. Resected and retrieved. - The examination was otherwise normal on direct and retroflexion views. Recommendation: - Discharge patient to home. - Resume previous diet. - Continue present medications. - Await pathology results. - Repeat colonoscopy in 5 years for surveillance based on pathology results. Procedure Code(s): --- Professional --- 21759, 33, Colonoscopy, flexible; with removal of tumor(s), polyp(s), or other lesion(s) by snare technique Diagnosis Code(s): --- Professional --- Z12.11, Encounter for screening for malignant neoplasm of colon D12.5, Benign neoplasm of sigmoid colon CPT copyright 2021 [employer]. All rights reserved. 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 Kieran Stiles MD 02/19/2023 9:34:30 AM This report has been signed electronically. Number of Addenda: 0 Note Initiated On: 02/19/2023 9:11 AM
[2023-02-19 09:37] VITALS: BP 107/62; BP 128/72; PULSE 66; RESP 16; TEMP 36.6; O2SAT 95
[2023-02-19 09:40] VITALS: BP 104/64; BP 128/72; PULSE 65; RESP 16; O2SAT 97
[2023-02-19 09:45] VITALS: BP 104/66; BP 128/72; PULSE 60; RESP 16; O2SAT 97
[2023-02-19 09:50] VITALS: BP 104/57; BP 128/72; PULSE 61; RESP 16; TEMP 36.2; O2SAT 96
[2023-02-19 10:12] VITALS: BP 128/72
== END 2023-02-19 10:15 | disposition home or self-care (01) ==
LOC: SDC 07:57 → AC 07:58
PROVIDERS: PCP Internal Medicine; Referring Provider Internal Medicine; Visit Provider Surgery
PROC: 0DJD8ZZ Inspection of Lower Intestinal Tract, Via Natural or Artificial Opening Endoscopic (ICD-10-PCS; CPT 45378; principal; 2023-02-19 08:55)
DX: Z12.11 Encounter for screening for malignant neoplasm of colon (principal); F17.210 Nicotine dependence, cigarettes, uncomplicated; D12.5 Benign neoplasm of sigmoid colon
CPT/HCPCS: 45385; 88305; J7120; J2405

== ENCOUNTER 2024-08-27 12:41 | Observation (INO) | payer OTHER, SELFPAY ==
[2024-08-27] VITALS (8 sets, daily range): BP systolic 137–172; BP diastolic 75–94; PULSE 67–101; RESP 9–18; TEMP 36.3–36.8; O2SAT 96–99; BMI 27.8; BMI 27.1
--- NOTE | 2024-08-27 13:14 | EKG12_ITS ---
Test Reason : Blood Pressure : */* mmHG Vent. Rate : 89 BPM Atrial Rate : 89 BPM P-R Int : 180 ms QRS Dur : 74 ms QT Int : 344 ms P-R-T Axes : 67 69 49 degrees QTcB Int : 418 ms Normal sinus rhythm Possible Left atrial enlargement Borderline ECG Confirmed by Triston Leon ([id number]), newspaper editor CONNOR LUGO ([id number]) on 08/28/2024 10:26:13 AM Referred By: Confirmed By: Triston Leon
--- NOTE | 2024-08-27 13:15 | ED.VIS.CHEST ---
HPI History of Present Illness Chief Complaint: Chest Pain Informant: patient and spouse/S.O. Narrative Narrative: Within the past hour or so, patient has had 3 different episodes of chest discomfort. He states initially he was doing some light exertion in his shop, he started having retrosternal nonpleuritic chest burning along with feeling lightheaded, dyspneic, weak and tired, and discomfort behind his left shoulder. With resting this lasted several minutes gradually resolving. He then went back to his activity, having another episode causing him to stop and rest, again with resolution of the symptoms. He then went to his truck and took 2 baby aspirin that he chewed and swallowed with something to drink in case maybe his blood sugar was low. He then went to start wiping his truck down and he got a third episode that again resolved with rest. At that point he had his bring him to the hospital. Patient is a smoker. His brother is 59 and several years ago had a quadruple bypass. Both of his parents have stents in their hearts, he does not remember at what age they received them. Patient does not see a physician regularly so he has no medical problems that he knows about. He does not recall ever having had a stress test. [facility] Medical History Chewing tobacco nicotine dependence Alcohol use History of steroid therapy Back pain Smoker History of pain when walking History of edema Home Medications ?Medication ?Instructions ?Recorded ?Last Taken ?Type NK 08/27/24 Unknown History Allergy/AdvReac Type Severity Reaction Status Date / Time No Known Allergies Allergy Verified 08/27/24 12:43 Family History Father Lung cancer Mother Heart disease Alzheimer disease Alzheimer's dementia Surgical History History of tonsillectomy History of lumbar laminectomy History of shoulder surgery History of fusion of cervical spine Social History adopted: No household members: spouse housing: house number of children: 4 current occupational status: employed 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 current occupational exposures/hazards: No pets and animals: Yes leisure activities: sports, exercise, hunting, fishing and other history of recent travel: Yes sexually active: Yes Smoking Status: Current every day smoker tobacco type: cigarettes and smokeless tobacco alcohol intake: current details: 12 pack a month substance use type: does not use well-balanced diet: daily or most days caffeine: Yes eating out: rarely or never during the past year weight has: increased > 10 lbs what type of physical activity do you participate in: walking and weight training frequency: daily yaneth/roman catholic: Yarsani seatbelt use: always do you feel safe at home: Yes ROS ROS ED Constitutional Constitutional ED: Reports fatigue; Denies chills or fever(s) Eyes Eyes: Denies change in vision or diplopia ENT ENT ED: Denies rhinorrhea or sore throat Cardiovascular Cardiovascular: Reports as per HPI, chest pain, lightheadedness and radiating jaw, neck or arm pain; Denies leg edema, palpitations or syncope Respiratory/Chest Respiratory/Chest: Denies cough or dyspnea Gastrointestinal Gastrointestinal: Denies abdominal pain, diarrhea, nausea or vomiting Genitourinary Genitourinary ED: Denies dysuria or hematuria Musculoskeletal Musculoskeletal: Denies back pain or neck pain Integumentary Denies abscess or rash Neurologic Neurologic: Denies headache(s), paresthesias or weakness Psychiatric Psychiatric: Denies anxiety or suicidal thoughts EXAM Physical Exam Const Vital Signs: 08/27/24 12:43 08/27/24 12:50 08/27/24 13:15 Temperature 97.4 F L Temperature Source Temporal Pulse Rate 101 H Respiratory Rate 18 Respiratory Effort Non-Labored Short of Breath Blood Pressure 172/75 H Blood Pressure Mean 107 Pulse Ox 97 Oxygen Delivery Method Room Air Room Air 08/27/24 13:46 08/27/24 14:00 08/27/24 15:06 Temperature 98.2 F Temperature Source Pulse Rate 79 73 74 Respiratory Rate 18 9 L 18 Respiratory Effort Blood Pressure 140/81 H 137/82 H 147/91 H Blood Pressure Mean 100 100 109 Pulse Ox 96 96 97 Oxygen Delivery Method Room Air Room Air Positive well nourished and well developed General Appearance ED: well developed and NAD HEENT Reports moist mucous membranes normocephalic and atraumatic Eyes PERRL and EOMs intact bilaterally Neck full ROM and supple Resp normal respiratory effort and clear to auscultation bilaterally Cardio regular rate, regular rhythm and no murmurs Peripheral Pulses: pulses 2+ throughout GI non-tender and non-distended Auscultation: normoactive bowel sounds Palpation: soft Back/Spine no CVA tenderness General Back: other FROM Extremity normal to inspection General Extremety ED: Negative for edema, pulses abnormal or tenderness General Extremity: Negative for edema or pulses abnormal Neuro oriented x3, CN's II-XII intact bilaterally and no sensory deficits noted Sensorium / Orientation: awake and alert Motor Exam: strength 5/5 throughout Psych mental status grossly normal Skin no rashes or lesions noted and no wounds Heart Score History: Highly Suspicious ECG: Normal Age: >45 - <65 years Risk Factors: 1 or 2 Risk Factors Score: 4 MDM MDM MDM Narrative Medical decision making narrative: Patient has a very concerning history for angina that is borderline unstable. He certainly has risk. His blood pressure currently 172/75, unclear if this is what he is typically at since he does not typically have it checked, we will continue to monitor that but at this time he has chest pain-free, and as I discussed with him, if his troponins are negative I will recommend that he stay in the hospital for a stress test. If abnormal he likely will need to bypass the stress and have a heart cath. Labs reviewed, they are unremarkable including his initial troponin which is within normal limits. His EKG is normal. His x-ray 1 view chest on my interpretation is normal showing a narrow mediastinum. Patient remaining chest pain-free. Discussed with hospitalist who agrees with inpatient observation to PCU for likely stress testing, second troponin sent and pending. Lab Data Attestation: I reviewed the patient's lab results. Labs: Laboratory Results - last 24 hr 08/27/24 12:48 WBC 10.2 RBC 4.97 Hgb 15.6 Hct 44.4 MCV 89.3 MCH 31.4 MCHC 35.1 RDW Std Deviation 38.4 RDW Coeff of Carlee 11.9 Plt Count 317 MPV 11.3 Immature Gran % (Auto) 0.600 Neut % (Auto) 66.2 Lymph % (Auto) 22.0 [place] % (Auto) 8.2 Eos % (Auto) 1.6 Baso % (Auto) 1.4 H Absolute Neuts (auto) 6.8 Absolute Lymphs (auto) 2.25 Nucleated RBC % 0 Sodium 136 Potassium 3.9 Chloride 104 Carbon Dioxide 26.0 Anion Gap 7 BUN 16 Creatinine 1.12 Estim Creat Clear Calc 88.02 Est GFR (MDRD) Af Amer 87 Est GFR (MDRD) Non-Af 72 BUN/Creatinine Ratio 14.3 Glucose 107 H Calcium 9.9 Troponin I High Sens 16 Radiography Diagnostic Testing: Clinical Impression(s) from Imaging Studies Chest X-Ray 08/27/24 13:35 IMPRESSION: No radiographic evidence of acute cardiopulmonary disease Reading Location: [facility] Rhythm Strip Rhythm Strip: Sinus Rhythm Rate: 89 Ectopy: None EKG Initial EKG: Attestation: I personally reviewed and interpreted this EKG as follows: Interpretation: Sinus Rhythm and No Acute Injury Pattern Comments: Nml axis & intervals; nml EKG Management Discussion w/another healthcare provider: Hospitalist Discharge Plan Dx/Rx/DC Orders Clinical Impression: Chest pain Disposition Disposition: Acute Care Hospital [facility]
[2024-08-27 13:24] LABS: Absolute Lymphocyte Count 2.25 X10^3/uL (0.83-4.51); Absolute Neutrophil Count 6.8 X10^3/uL (2.0-7.7); Basophil# 0.14 X10^3/uL; Basophil% 1.4 % (0-1); Eosinophil# 0.16 X10^3/uL; Eosinophils% 1.6 % (0-5); Hematocrit 44.4 % (40-54); Hemoglobin 15.6 g/dL (13.0-16.5); Lymphocyte # 2.25 X10^3/ul (0.83-4.51); Mean Corp Hgb Conc 35.1 g/dL (32-36); Mean Corpuscular Hgb 31.4 pg (27.0-32.0); Mean Corpuscular Volume 89.3 fL (80-94); Mean Platelet Vol. 11.3 fl (6.2-12.0); Monocyte# 0.84 X10^3/uL; Monocyte% 8.2 % (0-10); NRBC Flagged by Analyzer 0 % (0-5); Neutrophil # 6.78 X10^3/uL (2.7-7.7); Neutrophil % 66.2 % (47-70); Platelet Count 317 K/mm3 (150-450); RBC Distribution Width CV 11.9 % (11.6-14.6); RBC Distribution Width SD 38.4 fl (35.1-43.9); Red Blood Count 4.97 M/mm3 (4.6-6.2); White Blood Count 10.2 K/mm3 (4.4-11.0)
--- NOTE | 2024-08-27 13:35 | RAD_ITS ---
PROCEDURE: CHEST 1 VIEW (PORTABLE) REASON FOR EXAM: Chest pain TECHNIQUE: Frontal views of the chest. COMPARISON: None. FINDINGS: The heart size is normal. The mediastinal contour is unremarkable. The lungs are clear. The bones are unremarkable. RAD/Chest 1 View (Portable) IMPRESSION: No radiographic evidence of acute cardiopulmonary disease Reading Location: [facility]
[2024-08-27 13:41] LABS: Anion Gap 7 (5-15); BUN 16 mg/dL (7-18); BUN/Creat Ratio 14.3 RATIO (10-20); Calcium,Total 9.9 mg/dL (8.5-10.1); Chloride 104 mmol/L (98-107); Creatinine, Serum 1.12 mg/dL (0.70-1.30); EST Glomerular Filtration Rate 72 mL/min (>60); Est Glom Filt Rate - Afr Amer 87 mL/min (>60); Estimated Creatinine Clearance 88.02 ml/min; Glucose 107 mg/dL (74-106); Potassium 3.9 mmol/L (3.5-5.1); Sodium Level 136 mmol/L (136-145); Troponin-I HS (w/2H Reflex) 16 pg/mL (3.0-78.0)
--- NOTE | 2024-08-27 14:58 | PCM.HP.STD ---
HPI - General General Date of Admission: 08/27/24 Date of Service: 08/27/24 Chief Complaint: Chest pain HPI Narrative SVITLANA CHIU, is a 61-year-old male presented [facility] ED with chest pain. He reported 3 different episodes of chest discomfort, initially was when he was doing some light exertion shop and the pain was retrosternal, nonpleuritic, and a burning feeling along with lightheaded, dyspnea, weakness and fatigue and discomfort behind the left shoulder. With resting this lasted several minutes and gradually resolved. He then went back to activity and had another episode causing him to stop and rest, again with resolution of symptoms. Then he went to his truck and took 2 baby aspirin and then he went to start wiping his truck down and got a third episode that again resolved with rest. That point brought him to the hospital. Patient is a smoker. Has no personal cardiac history but does have a brother that had a quadruple bypass at 59 and additionally both parents have stents in her heart. He does not see a physician regularly so he does not have any medical problems that he is aware of. In the ED patient afebrile, heart rate initially 101 with blood pressure 172/75 this downtrended heart rate of 73 with a blood pressure of 137/82. Respiratory rate 18 patient 97% on room air. In ED initial troponin of 16 and lab workup otherwise unremarkable. Given patient's risk factors hospitalist contacted for admission for stress test. Patient evaluated bedside. Patient evaluated at bedside, he reports history as above with 3 episodes of chest burning and discomfort middle of his chest going towards his back and arm with lightheaded feeling and fatigue, each episode lasted about 10 to 15 minutes and resolved with rest. Denies any previous cardiac workup, sometimes has elevated blood pressure readings but has never been diagnosed with hypertension or been on treatment for it. Denies history of diabetes. Does use tobacco products and smokes a pack per day. Patient denies having any chest pain at this time or shortness of breath, patient completely asymptomatic [facility] Medical History Chewing tobacco nicotine dependence Alcohol use History of steroid therapy Back pain Smoker History of pain when walking History of edema Home Medications ?Medication ?Instructions ?Recorded ?Last Taken ?Type NK 08/27/24 Unknown History Allergy/AdvReac Type Severity Reaction Status Date / Time No Known Allergies Allergy Verified 08/27/24 12:43 Family History Father Lung cancer Mother Heart disease Alzheimer disease Alzheimer's dementia Surgical History History of tonsillectomy History of lumbar laminectomy History of shoulder surgery History of fusion of cervical spine Social History adopted: No household members: spouse housing: house number of children: 4 current occupational status: employed 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 current occupational exposures/hazards: No pets and animals: Yes leisure activities: sports, exercise, hunting, fishing and other history of recent travel: Yes sexually active: Yes Smoking Status: Current every day smoker tobacco type: cigarettes and smokeless tobacco alcohol intake: current details: 12 pack a month substance use type: does not use well-balanced diet: daily or most days caffeine: Yes eating out: rarely or never during the past year weight has: increased > 10 lbs what type of physical activity do you participate in: walking and weight training frequency: daily yaneth/lutheran: Hinduism seatbelt use: always do you feel safe at home: Yes ROS ROS Narrative General: Denies fever/chills HENT: Denies headache, denies stuffy nose, denies sore throat EYES: Denies changes in vision Resp: Denies cough, did have some shortness of breath at the episode of chest pain Cardiac: Patient with some chest burning 3 times worse with light activity rest GI: Denies abdominal pain, felt a little stomach upset during one of the episodes but this is resolved, denies nausea/vomiting : Denies changes in urination Extremity: Denies swelling MSK: Denies current weakness Neuro: Denies any numbness/tingling Heme: Denies any bleeding or bruising Skin: Denies rashes Psychiatric: No complaints voiced Vital Signs Vital Signs Vital Signs: 08/27/24 12:43 08/27/24 12:50 08/27/24 13:15 Temperature 97.4 F L Temperature Source Temporal Pulse Rate 101 H Respiratory Rate 18 Respiratory Effort Non-Labored Short of Breath Blood Pressure 172/75 H Blood Pressure Mean 107 Pulse Ox 97 Oxygen Delivery Method Room Air Room Air 02/23/25 13:46 08/27/24 14:00 Temperature Temperature Source Pulse Rate 79 73 Respiratory Rate 18 9 L Respiratory Effort Blood Pressure 140/81 H 137/82 H Blood Pressure Mean 100 100 Pulse Ox 96 96 Oxygen Delivery Method Room Air Room Air Weight Weight: 101.015 kg Body Mass Index (BMI) 27.8 Physical Exam Narrative General: Alert, oriented, no apparent distress HEENT: Atraumatic, normocephalic Eyes: Anicteric, normal conjunctiva, extraocular movements grossly intact Neck: Supple Respiratory: Clear to auscultation bilaterally, normal respiratory effort Cardiovascular: Regular rate and rhythm GI: Soft, nontender, nondistended Extremities: No edema Musculoskeletal: Moving all extremities Neuro: No overt focal neurological deficits Skin: No rashes appreciated Psych: Cooperative Results Lab / Micro Data 08/27/24 12:48 08/27/24 12:48 Labs: Laboratory Results - last 24 hr 08/27/24 12:48: WBC 10.2, RBC 4.97, Hgb 15.6, Hct 44.4, MCV 89.3, MCH 31.4, MCHC 35.1, RDW Std Deviation 38.4, RDW Coeff of Carlee 11.9, Plt Count 317, MPV 11.3, Immature Gran % (Auto) 0.600, Neut % (Auto) 66.2, Lymph % (Auto) 22.0, [place] % (Auto) 8.2, Eos % (Auto) 1.6, Baso % (Auto) 1.4 H, Absolute Neuts (auto) 6.8, Absolute Lymphs (auto) 2.25, Nucleated RBC % 0, Sodium 136, Potassium 3.9, Chloride 104, Carbon Dioxide 26.0, Anion Gap 7, BUN 16, Creatinine 1.12, Estim Creat Clear Calc 88.02, Est GFR (MDRD) Af Amer 87, Est GFR (MDRD) Non-Af 72, BUN/Creatinine Ratio 14.3, Glucose 107 H, Calcium 9.9, Troponin I High Sens 16 Rhythm Strip Rhythm Strip: Sinus Rhythm Rate: 89 Ectopy: None Imaging Radiology Impression Chest X-Ray 08/27/24 13:35 IMPRESSION: No radiographic evidence of acute cardiopulmonary disease Reading Location: [facility] Assessment & Plan Assessment/Plan (1) Chest pain: PLAN: Plan #Chest pain -EKG heart rate 89, normal sinus rhythm, no overt ischemic changes, EKG appears similar to 2022 -Trop 16, however repeat is ordered -Patient's heart score is 4 which is moderate risk -Admit to telemetry -Echo ordered -Aspirin -Statin -Lipid panel in AM -Stress test ordered for AM however if delta troponin is positive/patient has elevated troponin on repeat will cancel stress test and consult cardiology #Tobacco use -Advise cessation -Nicotine replacement available if desired, at present pt denies need #DVT ppx: Lovenox subcu Darcy Carroll MD Charges/Coding Visit Charges Inpatient E&M: 60776 Init Hosp L1
[2024-08-27 15:21] LABS: Reflex Troponin-HS? (from REC) Y
--- NOTE | 2024-08-27 15:24 | ECHOD_ITS ---
Reason For Study Reason For Study: CHEST PAIN Procedure This was a 2D Doppler, Color Flow transthoracic echocardiogram. Exam performed portable in patient room. Left Ventricle Normal LV size. The estimated ejection fraction is 70 %. No evidence for diastolic dysfunction. No regional wall motion abnormalities noted. Right Ventricle Normal RV size. Normal systolic function. Atria The left and right atria are normal. No doppler evidence for ASD. Mitral Valve There is no mitral valve stenosis. No mitral valve insufficiency. Tricuspid Valve There is no tricuspid stenosis. Unable to estimate RV systolic pressure due to inadequate jet, pulmonary artery pressure probably normal. Aortic Valve Trisinus/trileaflet aortic valve. There is no aortic stenosis. No aortic valve insufficiency. Pulmonic Valve There is no pulmonic valvular stenosis. No pulmonic valve insufficiency. Great Vessels Normal sized aortic root. Pericardium/Pleural No pericardial effusion. MMode/2D Measurements & Calculations LVIDd: 4.5 cm IVSd: 0.90 cm LVOT diam: 2.0 cm LVIDs: 2.5 cm LVPWd: 1.2 cm LVOT area: 3.2 cm2 FS: 43.8 % Ao root diam: 3.1 cm LAV(MOD-bp): 44.9 ml LVAd ap4: 25.5 cm2 LAV(MOD-bp) Indexed: 19.8 ml/m2 LVLd ap4: 9.2 cm LAV(MOD-sp2): 40.3 ml EDV(MOD-sp4): 58.5 ml LAV(MOD-sp4): 43.2 ml EDV(sp4-el): 59.9 ml LVAs ap4: 15.3 cm2 LVLs ap4: 7.6 cm ESV(MOD-sp4): 28.6 ml ESV(sp4-el): 26.3 ml EF(MOD-sp4): 51.1 % EF(sp4-el): 56.1 % SV(MOD-sp4): 29.9 ml SV(sp4-el): 33.6 ml LA A4 area: 18.0 cm2 SI(MOD-sp4): 13.2 ml/m2 LA dimension(2D): 3.5 cm RA A4 area: 17.4 cm2 Time Measurements MV dec time: 0.27 sec Doppler Measurements & Calculations MV E max mo: 60.2 cm/sec Lat Peak E' Mo: 16.0 cm/sec Med Peak E' Mo: 11.2 cm/sec MV A max mo: 65.2 cm/sec E/E' lat: 3.8 E/E' med: 5.4 MV E/A: 0.92 Ao V2 max: 155.4 cm/sec LV V1 max: 124.7 cm/sec MV dec slope: 219.2 cm/sec2 Ao max P.7 mmHg LV V1 max P.2 mmHg Ao V2 mean: 106.8 cm/sec LV V1 mean P.3 mmHg Ao mean P.3 mmHg LV V1 mean: 85.3 cm/sec Ao V2 VTI: 37.8 cm LV V1 VTI: 26.9 cm AV (velocity ratio): 0.71 COOKIE(I,D): 2.3 cm2 COOKIE(V,D): 2.5 cm2 SV(LVOT): 85.2 ml PA V2 max: 77.5 cm/sec PA V2 mean: 54.9 cm/sec ECHO/Echo Complete Interpretation Summary The estimated ejection fraction is 70 %. No evidence for diastolic dysfunction. Ordering Physician: Darcy Carroll Referring Physician: Anne Jarquin M.D. Performed By: Perla Cowan RCS
[2024-08-27 15:51] LABS: Troponin-I HS 39 pg/mL (3.0-78.0)
[2024-08-27 16:39] LABS: Troponin-I HS 41 pg/mL (3.0-78.0)
--- NOTE | 2024-08-27 18:23 | EKG12_ITS ---
Test Reason : cp Blood Pressure : */* mmHG Vent. Rate : 67 BPM Atrial Rate : 67 BPM P-R Int : 208 ms QRS Dur : 64 ms QT Int : 370 ms P-R-T Axes : 54 56 33 degrees QTcB Int : 390 ms Normal sinus rhythm NORMAL Confirmed by Triston Leon [id number]), society editor CONNOR LUGO ([id number]) on 08/28/2024 10:38:51 AM Referred By: Glen Confirmed By: Triston Leon
--- NOTE | 2024-08-27 19:37 | PCM.HOSP.N ---
Hospitalist Note Patient's troponin was delta positive, initial 16 and trended up to 39, patient on aspirin and statin, low-dose beta-samanta added, discussed with cardiology and heparin drip started. Echo already ordered, patient n.p.o. at midnight for possible heart cath tomorrow
[2024-08-27 19:41] LABS: Troponin-I HS 43 pg/mL (3.0-78.0)
[2024-08-27 20:54] LABS: Prothrombin Time (Protime)PT. 13.6 SECONDS (11.7-14.9)
[2024-08-27 20:55] LABS: Partial Thromboplast Time 31.8 Seconds (24.1-36.2)
[2024-08-27] MEDS: HEPARIN/D5w 25,000 UNITS 25,000 UNITS/250 ML IV.SOLN. 10 UNITS CONT INF (21:24)
[2024-08-27] MEDS: Heparin Injection (Vial) 5,000 UNIT/ML VIAL 4000 UNIT IV (21:24)
[2024-08-27] MEDS: Atorvastatin Calcium 80 MG Tablet PO (21:25)
[2024-08-27] MEDS: Metoprolol Tartrate 25 MG Tablet 12.5 MG PO (21:25)
[2024-08-28] VITALS (14 sets, daily range): BP systolic 115–144; BP diastolic 60–88; PULSE 48–63; RESP 12–18; TEMP 36.4–36.7; O2SAT 97–100
[2024-08-28 03:38] LABS: Absolute Lymphocyte Count 3.32 X10^3/uL (0.83-4.51); Absolute Neutrophil Count 3.7 X10^3/uL (2.0-7.7); Basophil# 0.12 X10^3/uL; Basophil% 1.5 % (0-1); Eosinophil# 0.31 X10^3/uL; Eosinophils% 3.8 % (0-5); Hematocrit 40.8 % (40-54); Hemoglobin 13.8 g/dL (13.0-16.5); Lymphocyte # 3.32 X10^3/ul (0.83-4.51); Lymphocyte % 40.2 % (19-41); Mean Corp Hgb Conc 33.8 g/dL (32-36); Mean Corpuscular Hgb 30.5 pg (27.0-32.0); Mean Corpuscular Volume 90.3 fL (80-94); Mean Platelet Vol. 10.8 fl (6.2-12.0); Monocyte# 0.75 X10^3/uL; Monocyte% 9.1 % (0-10); NRBC Flagged by Analyzer 0 % (0-5); Neutrophil # 3.71 X10^3/uL (2.7-7.7); Neutrophil % 44.8 % (47-70); Platelet Count 296 K/mm3 (150-450); RBC Distribution Width CV 11.9 % (11.6-14.6); RBC Distribution Width SD 39.5 fl (35.1-43.9); Red Blood Count 4.52 M/mm3 (4.6-6.2); White Blood Count 8.3 K/mm3 (4.4-11.0)
[2024-08-28 03:46] LABS: Partial Thromboplast Time 52.7 Seconds (24.1-36.2)
[2024-08-28 03:57] LABS: Anion Gap 6 (5-15); BUN 18 mg/dL (7-18); BUN/Creat Ratio 17.6 RATIO (10-20); Calcium,Total 8.8 mg/dL (8.5-10.1); Chloride 106 mmol/L (98-107); Cholesterol 174 mg/dL (200); Creatinine, Serum 1.02 mg/dL (0.70-1.30); EST Glomerular Filtration Rate 80 mL/min (>60); Est Glom Filt Rate - Afr Amer 97 mL/min (>60); Estimated Creatinine Clearance 96.65 ml/min; Glucose 109 mg/dL (74-106); High Density Lipoprotein 35 mg/dL; Potassium 4.2 mmol/L (3.5-5.1); Sodium Level 139 mmol/L (136-145); Triglycerides 106 mg/dL; Very Low Density Lipoprotein 21 mg/dL (5-40)
--- NOTE | 2024-08-28 05:55 | EKG12_ITS ---
Test Reason : Blood Pressure : */* mmHG Vent. Rate : 59 BPM Atrial Rate : 59 BPM P-R Int : 210 ms QRS Dur : 84 ms QT Int : 408 ms P-R-T Axes : 61 66 46 degrees QTcB Int : 403 ms Sinus bradycardia with 1st degree A-V block Otherwise normal ECG When compared with ECG of 27-Aug-2024 16:34, MANUAL COMPARISON REQUIRED DATA IS UNCONFIRMED Confirmed by Triston Leon ([id number]), marketing editor CONNOR LUGO ([id number]) on 08/28/2024 10:36:54 AM Referred By: Confirmed By: Triston Leon
[2024-08-28] MEDS: Aspirin E.C. 81 MG Tablet PO (06:23)
--- NOTE | 2024-08-28 07:53 | CON.PCM.CA_ITS ---
Assessment & Plan Assessment/Plan (1) Chest pain: QUALIFIERS: Chest pain type: chest pain due to myocardial ischemia Ischemic chest pain type: unstable angina pectoris Qualified Code(s): I20.0 - Unstable angina PLAN: Patient's symptoms are classic for accelerating angina. He does have significant risk factors including strong family history with his brother at a young age having bypass surgery, he is a smoker, he is also hypertensive and his LDL cholesterol is 118. The patient's troponins were negative and his EKG does not show any acute ischemic changes but he has been asymptomatic except for these 315-minute episodes of discomfort. Given these findings I feel this is accelerating angina and would recommend he undergo a left heart catheterization. 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 I discussed the cardiac catheterization procedure risk/benefit and alternatives with the patient he voiced understanding and agrees to proceed. (2) Smoker: PLAN: Patient is a smoker. We will discuss smoking cessation with him. (3) Hypertension: QUALIFIERS: Hypertension type: primary hypertension Qualified Code(s): I10 - Essential (primary) hypertension PLAN: Patient's blood pressure is elevated on this admission. He does not routinely visit with his primary care. He is on no medications in his home environment. Metoprolol was started here in the hospital. PLAN: Plan 1. Will add Brilinta 180 mg p.o. as a one-time dose to his aspirin 81 mg. 2. Recommend left heart catheterization today. Dr. Amin will be performing. 3. Further recommendations will be forthcoming once the cath is available. HPI Consult Data Date of Consult: 08/28/24 HPI Narrative Reason for Consultation: Accelerating Angina HPI Narrative: SVITLANA CHIU, is a 58 M who presents with chest discomfort. The patient was working on his semitrailer yesterday when he developed some chest discomfort that radiated toward his back into his left arm he became lightheaded and fatigued lasted about 15 minutes and resolved with rest. He got back up and started to work again and the same thing recurred it again resolved with rest. A third time this occurred his brought him to the emergency room for evaluation. His initial troponin was 31 he did go up to 48. His EKG showed a normal sinus rhythm at 73 bpm with no ischemic changes. The patient's had no recent viral illnesses. The patient does have a strong family history of coronary disease he is a smoker and hypertensive. He is not diabetic and his LDL cholesterol was checked on this admission at 118. Total cholesterol 174 triglycerides 106 and HDL 35. Currently the patient is pain-free at bed rest. He has been in mid to the hospital and is on heparin. The patient denies any claudication he does report he is rarely goes to the doctor's office. He did not know what his cholesterol was. Patient did report that he has a charley horse type feeling in his right hamstring but this started after he tripped over fuel hose recently. [facility] Medical History Chewing tobacco nicotine dependence Alcohol use History of steroid therapy Back pain Smoker History of pain when walking History of edema Home Medications ?Medication ?Instructions ?Recorded ?Last Taken ?Type NK 08/27/24 Unknown History Allergy/AdvReac Type Severity Reaction Status Date / Time No Known Allergies Allergy Verified 08/27/24 12:43 Family History Father Lung cancer Mother Heart disease Alzheimer disease Alzheimer's dementia Surgical History History of tonsillectomy History of lumbar laminectomy History of shoulder surgery History of fusion of cervical spine Social History adopted: No household members: spouse housing: house number of children: 4 current occupational status: employed 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 current occupational exposures/hazards: No pets and animals: Yes leisure activities: sports, exercise, hunting, fishing and other history of recent travel: Yes sexually active: Yes Smoking Status: Current every day smoker tobacco type: cigarettes and smokeless tobacco alcohol intake: current details: 12 pack a month substance use type: does not use well-balanced diet: daily or most days caffeine: Yes eating out: rarely or never during the past year weight has: increased > 10 lbs what type of physical activity do you participate in: walking and weight training frequency: daily yaneth/latter day: Jew seatbelt use: always do you feel safe at home: Yes ROS Constitutional Constitutional: Reports as per HPI Eyes Eyes: Reports systems reviewed and no addt'l complaints, except as documented ENT HEENT: Reports systems reviewed and no addt'l complaints, except as documented Cardiovascular Cardiovascular: Reports as per HPI Respiratory/Chest Respiratory/Chest: Reports as per HPI Gastrointestinal Gastrointestinal: Reports systems reviewed and no addt'l complaints, except as documented Genitourinary Genitourinary: Reports systems reviewed and no addt'l complaints, except as documented Musculoskeletal Musculoskeletal: Reports as per HPI Integumentary Integumentary: Reports systems reviewed and no addt'l complaints, except as documented Neurologic Neurologic: Reports systems reviewed and no addt'l complaints, except as documented Psychiatric Psychiatric: Reports systems reviewed and no addt'l complaints, except as documented Endocrine Endocrinology: Reports as per HPI Hematologic/Lymphatic Hematologic/Lymphatic: Reports systems reviewed and no addt'l complaints, except as documented Allergic/Immunologic Allergic/Immunologic: Reports systems reviewed and no addt'l complaints, except as documented Physical Exam Const alert, oriented x3, no apparent distress and healthy appearing HEENT normocephalic Eyes PERRL Neck no JVD and no carotid bruits Chest inspection of chest normal Resp normal respiratory effort and clear to auscultation bilaterally Cardio Rate: bradycardia Rhythm: regular rhythm Heart Sounds: S1 normal and S2 normal; Negative for click, gallop or murmur Peripheral Pulses: pulses 2+ throughout GI normal to inspection, nondistended, normoactive bowel sounds Extremity no pedal edema Skin no rashes or lesions noted Neuro Neuro Narrative: Alert and oriented x 3. Psych mental status grossly normal Risk Stratification Risk Stratification Applicable: Yes Age >/= 65: No >/= 3 CAD Risk Factors (HTN, HLD, DM, family hx of CAD, or current smoker): Yes Aspirin Use in the Past 7 Days: No Severe Angina (>/= episodes in 24 hours): Yes EKG ST Changes >/= 0.5mm: No Positive Cardiac Marker: No SHANICE Risk Stratification Score: 2 SHANICE % Risk: 8% Risk Charges/Coding Visit Charges Inpatient E&M: 69463 Init Hosp L2 Objective Data Vital Signs: Vital Signs Temp Pulse Resp BP Pulse Ox O2 Del Method 97.8 F 53 L 16 127/76 H 97 Room Air 08/28/24 02:50 08/28/24 02:50 08/28/24 02:50 08/28/24 02:50 08/28/24 02:50 08/28/24 02:50 Oxygen Delivery Method Room Air Weight: 217 lb 6.4 oz Body Mass Index (BMI) 27.1 Intake & Output: Intake and Output for Last 24 Hours 08/26/24 08/27/24 08/28/24 23:59 23:59 23:59 Intake Total 64.5 / 64.5 Balance 64.5 / 64.5 Lab / Micro Data Attestation: I reviewed the patient's lab results. 08/28/24 03:24 08/28/24 03:24 Labs: Laboratory Results - last 24 hr 08/27/24 12:48: WBC 10.2, RBC 4.97, Hgb 15.6, Hct 44.4, MCV 89.3, MCH 31.4, MCHC 35.1, RDW Std Deviation 38.4, RDW Coeff of [place] 11.9, Plt Count 317, MPV 11.3, Immature Gran % (Auto) 0.600, Neut % (Auto) 66.2, Lymph % (Auto) 22.0, [place] % (Auto) 8.2, Eos % (Auto) 1.6, Baso % (Auto) 1.4 H, Absolute Neuts (auto) 6.8, Absolute Lymphs (auto) 2.25, Nucleated RBC % 0, Sodium 136, Potassium 3.9, Chloride 104, Carbon Dioxide 26.0, Anion Gap 7, BUN 16, Creatinine 1.12, Estim Creat Clear Calc 88.02, Est GFR (MDRD) Af Amer 87, Est GFR (MDRD) Non-Af 72, BUN/Creatinine Ratio 14.3, Glucose 107 H, Calcium 9.9, Troponin I High Sens 16 08/27/24 15:26: Troponin I High Sens 39 08/27/24 16:16: Troponin I High Sens 41 08/27/24 18:57: Troponin I High Sens 43 08/27/24 20:31: PT 13.6, INR 1.0, APTT 31.8 08/28/24 03:24: WBC 8.3, RBC 4.52 L, Hgb 13.8, Hct 40.8, MCV 90.3, MCH 30.5, MCHC 33.8, RDW Std Deviation 39.5, RDW Coeff of [place]lee 11.9, Plt Count 296, MPV 10.8, Immature Gran % (Auto) 0.600, Neut % (Auto) 44.8 L, Lymph % (Auto) 40.2, [place] % (Auto) 9.1, Eos % (Auto) 3.8, Baso % (Auto) 1.5 H, Absolute Neuts (auto) 3.7, Absolute Lymphs (auto) 3.32, Nucleated RBC % 0, APTT 52.7 H, Sodium 139, Potassium 4.2, Chloride 106, Carbon Dioxide 26.0, Anion Gap 6, BUN 18, Creatinine 1.02, Estim Creat Clear Calc 96.65, Est GFR (MDRD) Af Amer 97, Est GFR (MDRD) Non-Af 80, BUN/Creatinine Ratio 17.6, Glucose 109 H, Calcium 8.8, Triglycerides 106, Cholesterol 174, LDL Cholesterol 118, VLDL Cholesterol 21, H DL Cholesterol 35 L Rhythm Strip Rhythm Strip: Sinus Rhythm Rate: 58 Ectopy: None Cardiology Labs/Tests 08/27/24 12:48: WBC 10.2, RBC 4.97, Hgb 15.6, Hct 44.4, MCV 89.3, MCH 31.4, MCHC 35.1, Plt Count 317, MPV 11.3, Immature Gran % (Auto) 0.600, Neut % (Auto) 66.2, Lymph % (Auto) 22.0, Bates % (Auto) 8.2, Eos % (Auto) 1.6, Baso % (Auto) 1.4 H, Absolute Neuts (auto) 6.8, Nucleated RBC % 0, Sodium 136, Potassium 3.9, Chloride 104, Carbon Dioxide 26.0, Anion Gap 7, BUN 16, Creatinine 1.12, Est GFR (MDRD) Af Amer 87, Est GFR (MDRD) Non-Af 72, BUN/Creatinine Ratio 14.3, Glucose 107 H, Calcium 9.9 08/27/24 20:31: PT 13.6, INR 1.0, APTT 31.8 08/28/24 03:24: WBC 8.3, RBC 4.52 L, Hgb 13.8, Hct 40.8, MCV 90.3, MCH 30.5, MCHC 33.8, Plt Count 296, MPV 10.8, Immature Gran % (Auto) 0.600, Neut % (Auto) 44.8 L, Lymph % (Auto) 40.2, Bates % (Auto) 9.1, Eos % (Auto) 3.8, Baso % (Auto) 1.5 H, Absolute Neuts (auto) 3.7, Nucleated RBC % 0, APTT 52.7 H, Sodium 139, Potassium 4.2, Chloride 106, Carbon Dioxide 26.0, Anion Gap 6, BUN 18, Creatinine 1.02, Est GFR (MDRD) Af Amer 97, Est GFR (MDRD) Non-Af 80, BUN/Creatinine Ratio 17.6, Glucose 109 H, Calcium 8.8, Triglycerides 106, Cholesterol 174, LDL Cholesterol 118, VLDL Cholesterol 21, HDL Cholesterol 35 L Rhythm: EKG: ECHO: Stress Test: Cardiac Cath: PCI: CT Surgery: Holter monitor: EPS: PPM: CXR: Chest CT Scan: Radiography Diagnostic Testing: Radiology Impression Chest X-Ray 08/27/24 13:35 IMPRESSION: No radiographic evidence of acute cardiopulmonary disease [facility]
[2024-08-28 08:37] LABS: Hemoglobin A1c 5.3 % (3.8-5.6)
[2024-08-28] MEDS: TICAGRELOR 90 MG TABLET 180 MG PO (08:44)
--- NOTE | 2024-08-28 09:44 | CASEMGMT ---
Insurance review for hospitals In-network with [facility] insurance if transfer is recommended [facility] as follows[facility] . Ana Castro, Discharge Planning Asst.
--- NOTE | 2024-08-28 10:15 | EKG12_ITS ---
Test Reason : AM EKG Blood Pressure : */* mmHG Vent. Rate : 53 BPM Atrial Rate : 53 BPM P-R Int : 194 ms QRS Dur : 86 ms QT Int : 412 ms P-R-T Axes : 58 57 36 degrees QTcB Int : 386 ms Sinus bradycardia Otherwise normal ECG When compared with ECG of 28-Aug-2024 11:12, MANUAL COMPARISON REQUIRED DATA IS UNCONFIRMED Confirmed by Triston Leon ([id number]), staff editor SIDNEY MEDELLIN ([id number]) on 08/29/2024 1:05:52 PM Referred By: Confirmed By: Triston Leon
--- NOTE | 2024-08-28 11:01 | CRPHASE1_ITS ---
Patient Communication Patient Information Former Patient:: Phase I PHII Cardiac Rehab Discussed with Patient:: Yes Guide to Cardiac Rehab Given to Patient:: Yes Cardiac Rehab Facility Choice List Given to Patient:: Yes Communication to Cardiac Rehab Choice Program [facility] CR PHII:: Communication Given to CR Commissary Assistant:: Preeti Amin Phase II Cardiac Rehab:: Yes Sessions:: 36 sessions - 2 days/wk, 18 weeks Medical/Surgical History Medical History ID:: No Angina:: Yes CAD:: Yes Congestive Heart Failure: Cardiomyopathy:: No Valve Disease/Replacement:: No Pulmonary:: No COPD:: No Asthma:: No MARICA:: No Diabetes:: No Diabetes Type I:: No Diabetes Type II:: No Hypertension:: Yes Dyslipidemia:: No Arrhythmias:: No EPS:: No CVA/TIA: CEA:: No PE:: No DVT:: No PVD:: No PAD:: No Arthritis:: No GI:: No GERD:: Yes Cancer:: No Renal:: No Thyroid:: No Depression:: No Anxiety:: No Surgical History CABG: No PTCA:: Yes ICD:: No Pacemaker:: No Orthopedic:: No Cardiac Rehabilitation Info Program Information Cardiac Rehabilitation Program Information: Cardiac Rehab The cardiac rehab team at [facility] consists of highly skilled exercise physiologists, nurses, respiratory therapists and physicians working together with you. Our purpose is to help you have a full recovery and achieve the goals you set for yourself. Over the years many of our patients have returned to activities they assumed they would never do again! We can help restore your confidence and motivation to make lifestyle changes that can have a significant impact on your health and quality of life! We can help answer questions and concerns you may have about exercise, lifestyle, medications, diet, stress and anxiety which are common following a hospitalization. WE monitor ECG and vital signs during exercise and discuss your progress with you and report to your physician(s). Cardiac Rehab is proven to help reduce readmissions, improve functional capacity and lower recurrence of problems with your heart. Our Cardiac Rehab program is Certified by the [place] [employer]-V[employer] and Pulmonary [employer] (AACVPR) and Accredited by the [place] [employer] through our [facility]. You can contact us at . We invite you to call us with your questions or to get started in our program. If you have other questions or concerns be sure to ask your physician/provider during your follow-up visit. WE look forward to seeing you!
--- NOTE | 2024-08-28 11:03 | CRPH1.INSTRU ---
General Education Discussed with Patient CAD and cardiac anatomy and function:: Patient communicates acknowledgment and Family communicates acknowledgment Explanation of diagnoses and procedures:: Patient communicates acknowledgment Sign/Symptoms of IN:: Patient communicates acknowledgment Antiplatelet therapy: Patient communicates acknowledgment and Family communicates acknowledgment Proper use of NTG-SL: Patient communicates acknowledgment Emergency procedures and activation of EMS: Patient communicates acknowledgment and Family communicates acknowledgment Compliance of all prescribed medications: Patient communicates acknowledgment and Family communicates acknowledgment Smoking Risk Factors Patient Nicotine/Smoking Risk Factors Are:: Cigarettes and Smokeless tobacco Response Code Nicotine/Smoking Response Code:: Needs reinforcement Dyslipidemia Recommendations Recommendations Include:: Lipid profile not available Overweight/Obesity Risk Factors Patient Overweight/Obesity Risk Factors Are:: Overweight = 26-29 Recommendations Recommendations Include:: Exercise 5-7 times/week Response Code Overweight/Obesity:: Patient communicates acknowledgment Hypertension Recommendations Recommendations Include:: Maintain BP <130/85, Decrease/maintain normal body weight and Moderation of ETOH Response Code Hypertension:: Patient communicates acknowledgment and Family communicates acknowledgment Heart Disease Risk Factors Patient Heart Disease Risk Factors Are:: Family history of heart disease < 65 years old and Previous cardiac event Recommendations Recommendations Include:: Educated family members of their risk and Educated family members of importance of prevention of heart disease Response Code Heart Disease Response Code:: Patient communicates acknowledgment and Family communicates acknowledgment Diabetes Risk Factors Patient Diabetes Risk Factors Are:: No documented hx of diabetes Metabolic Syndrome Risk Factors Patient Metabolic Syndrome Risk Factors Are [3 of 5]:: Hypertension Recommendations Recommendations Include:: Encouraged follow-up with Primary Care Physician Response Code Metabolic Syndrome Response Code:: Patient communicates acknowledgment and Family communicates acknowledgment Sedentary Recommendations Recommendations Include:: Benefits of regular exercise Response Code Sedentary Response Code:: Patient communicates acknowledgment Stress Recommendations Recommendations Include:: Stress management techniques Response Code Stress Response Code:: Patient communicates acknowledgment and Family communicates acknowledgment
--- NOTE | 2024-08-28 12:56 | CHAPLAIN ---
Type of Pastoral Visit _x__ Initial Visit ___ Follow-up Visit ___ On-call Visit ___ General Patient Visit ___ Spiritual Assessment ___ Family Conference ___ Bereavement ___ Rapid Response ___ Code Blue ___ Other (describe below) Pastoral Care Referral From _x__ Patient _x__ Family ___ Nurse ___ Physician ___ Railroad Shop Inspector ___ Merchandise Coordinator ___ Other (describe below) Sacrament/Intervention _x__ Active listening ___ Anointing ___ Congregational ___ Bereavement ___ Communion _x__ Zuleika exploration ___ ___ Life review _x__ Prayer ___ Reconciliation ___ Sacrament of Sick _x__ Supportive presence ___ Wedding ___ Other (describe below) Pastoral Comments patient and spouse are in the room; pt admits that this heart emergency came up out of nowhere and that it has gotten his attention; pt says that he is concerned about his finances because he is self employed; pt admits that he was scared that he might have ; pt is asked about his feelings and how this has impacted him for the future; pt was attending a [employer] years ago but has not lately; pt acknowledges need for prayer and to quit smoking; spouse encourages patient to quit smoking but understands that this will be hard; 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
--- NOTE | 2024-08-28 18:37 | PCM.PN.HOSP ---
Reason for Visit Reason for Visit: Diagnoses Nicotine dependence, unspecified, uncomplicated (08/27/24) Essential (primary) hypertension (08/27/24) Unstable angina (08/27/24) Chest pain, unspecified (08/27/24) Subjective Subjective Patient seen post cath, denying any current chest pain or shortness of breath, patient did require 3 stents Objective Data Objective Data Vital Signs: Vital Signs Temp Pulse Resp BP Pulse Ox O2 Del Method 97.5 F L 60 18 133/60 H 97 Room Air 08/28/24 17:18 08/28/24 17:18 08/28/24 17:18 08/28/24 17:18 08/28/24 17:18 08/28/24 17:18 Oxygen Delivery Method Room Air Weight: 98.611 kg Body Mass Index (BMI) 27.1 Intake & Output: Intake and Output for Last 24 Hours 08/26/24 08/27/24 08/28/24 23:59 23:59 23:59 Intake Total 118.4 / 118.4 Balance 118.4 / 118.4 Lab / Micro Data 08/28/24 03:24 08/28/24 03:24 Labs: Laboratory Results - last 24 hr 08/27/24 18:57: Troponin I High Sens 43 08/27/24 20:31: PT 13.6, INR 1.0, APTT 31.8 08/28/24 03:24: WBC 8.3, RBC 4.52 L, Hgb 13.8, Hct 40.8, MCV 90.3, MCH 30.5, MCHC 33.8, RDW Std Deviation 39.5, RDW Coeff of Carlee 11.9, Plt Count 296, MPV 10.8, Immature Gran % (Auto) 0.600, Neut % (Auto) 44.8 L, Lymph % (Auto) 40.2, [place] % (Auto) 9.1, Eos % (Auto) 3.8, Baso % (Auto) 1.5 H, Absolute Neuts (auto) 3.7, Absolute Lymphs (auto) 3.32, Nucleated RBC % 0, APTT 52.7 H, Sodium 139, Potassium 4.2, Chloride 106, Carbon Dioxide 26.0, Anion Gap 6, BUN 18, Creatinine 1.02, Estim Creat Clear Calc 96.65, Est GFR (MDRD) Af Amer 97, Est GFR (MDRD) Non-Af 80, BUN/Creatinine Ratio 17.6, Glucose 109 H, Hemoglobin A1c 5.3, Calcium 8.8, Triglycerides 106, Cholesterol 174, LDL Cholesterol 118, VLDL Cholesterol 21, HDL Cholesterol 35 L Rhythm Strip Rhythm Strip: Sinus Rhythm Rate: 58 Ectopy: None Physical Exam Narrative General: Alert, oriented, no apparent distress HEENT: Atraumatic, normocephalic Eyes: Anicteric, normal conjunctiva, extraocular movements grossly intact Neck: Supple Respiratory: Clear to auscultation bilaterally, normal respiratory effort Cardiovascular: Regular rate and rhythm GI: Soft, nontender, nondistended Extremities: No edema Musculoskeletal: Moving all extremities Neuro: No overt focal neurological deficits Skin: No rashes appreciated Psych: Cooperative Assessment & Plan Assessment/Plan (1) Chest pain: QUALIFIERS: Chest pain type: chest pain due to myocardial ischemia Ischemic chest pain type: unstable angina pectoris Qualified Code(s): I20.0 - Unstable angina PLAN: Plan #Chest pain-due to coronary artery disease status post 3 stents -EKG heart rate 89, normal sinus rhythm, no overt ischemic changes, EKG appears similar to 2022 -Trop 16, however repeat is ordered -Patient's heart score is 4 which is moderate risk -Admit to telemetry -Echo ordered -Aspirin -Statin -Lipid panel in AM -Stress test ordered for AM however if delta troponin is positive/patient has elevated troponin on repeat will cancel stress test and consult cardiology -08/28: Ultimately Patient's troponin was delta positive, initial 16 and trended up to 39, this was discussed with cardiology and patient placed on heparin drip and n.p.o. at midnight for heart cath which she had this a.m. and was found to have coronary artery disease and received 3 stents. Cardiology following. Patient on atorvastatin, Brilinta, metoprolol, aspirin, presently chest pain-free Chronic medical problem: #Tobacco use -Advise cessation -Nicotine replacement available if desired, at present pt denies need #DVT ppx: Lovenox subcu Darcy Carroll MD Charges/Coding Visit Charges Inpatient E&M: 97556 Subs Hosp L1
[2024-08-28] MEDS: TICAGRELOR 90 MG TABLET PO (21:55)
[2024-08-28] MEDS: Metoprolol Tartrate 25 MG Tablet 12.5 MG PO (21:55)
[2024-08-28] MEDS: Atorvastatin Calcium 80 MG Tablet PO (21:55)
[2024-08-29 03:15] VITALS: BP 125/72; PULSE 62; RESP 17; TEMP 36.4; O2SAT 97
[2024-08-29 07:10] VITALS: O2SAT 95
[2024-08-29 07:26] LABS: Hematocrit 41.9 % (40-54); Hemoglobin 14.2 g/dL (13.0-16.5); Mean Corp Hgb Conc 33.9 g/dL (32-36); Mean Corpuscular Hgb 30.4 pg (27.0-32.0); Mean Corpuscular Volume 89.7 fL (80-94); Mean Platelet Vol. 10.8 fl (6.2-12.0); Platelet Count 301 K/mm3 (150-450); RBC Distribution Width CV 11.9 % (11.6-14.6); RBC Distribution Width SD 38.7 fl (35.1-43.9); Red Blood Count 4.67 M/mm3 (4.6-6.2); White Blood Count 9.2 K/mm3 (4.4-11.0)
[2024-08-29 07:53] LABS: ALB/GLOB Ratio 1.2 RATIO (0.9-2.4); AST(SGOT) 16 U/L (15-37); Alanine Aminotransfer ALT/SGPT 27 U/L (16-61); Albumin, Serum 3.6 g/dL (3.2-5.0); Alkaline Phosphatase 81 U/L (45-117); Anion Gap 3 (5-15); BUN 14 mg/dL (7-18); Calcium,Total 8.9 mg/dL (8.5-10.1); Chloride 107 mmol/L (98-107); EST Glomerular Filtration Rate 82 mL/min (>60); Est Glom Filt Rate - Afr Amer 100 mL/min (>60); Estimated Creatinine Clearance 98.58 ml/min; Globulin 3.1 g/dL (2.2-4.2); Glucose 111 mg/dL (74-106); Potassium 4.1 mmol/L (3.5-5.1); Protein, Total 6.7 g/dL (6.4-8.2); Sodium Level 138 mmol/L (136-145)
--- NOTE | 2024-08-29 08:23 | PCM.PN.CARD ---
Subjective Subjective Patient resting comfortably in bed this morning. Denies any chest pain or further shortness of breath. The patient's shortness of breath was temporally correlated with his Brilinta dose. He denies any issues with his right wrist at the insertion site. He tolerated the stenting of his right coronary without incident. Objective Data Vital Signs: Vital Signs Temp Pulse Resp BP Pulse Ox O2 Del Method 97.5 F L 62 17 125/72 H 95 Room Air 08/29/24 03:15 08/29/24 03:15 08/29/24 03:15 08/29/24 03:15 08/29/24 07:10 08/29/24 07:10 Oxygen Delivery Method Room Air Weight: 217 lb 6.4 oz Body Mass Index (BMI) 27.1 Intake & Output: Intake and Output for Last 24 Hours 08/27/24 08/28/24 08/29/24 23:59 23:59 23:59 Intake Total 118.4 / 118.4 Balance 118.4 / 118.4 Lab / Micro Data Attestation: I reviewed the patient's lab results. 08/29/24 06:57 08/29/24 06:57 Labs: Laboratory Results - last 24 hr 08/28/24 03:24: Hemoglobin A1c 5.3 08/29/24 06:57: WBC 9.2, RBC 4.67, Hgb 14.2, Hct 41.9, MCV 89.7, MCH 30.4, MCHC 33.9, RDW Std Deviation 38.7, RDW Coeff of Carlee 11.9, Plt Count 301, MPV 10.8, Sodium 138, Potassium 4.1, Chloride 107, Carbon Dioxide 28.0, Anion Gap 3 L, BUN 14, Creatinine 1.00, Estim Creat Clear Calc 98.58, Est GFR (MDRD) Af Amer 100, Est GFR (MDRD) Non-Af 82, BUN/Creatinine Ratio 14.0, Glucose 111 H, Calcium 8.9, Total Bilirubin 0.40, AST 16, ALT 27, Alkaline Phosphatase 81, Total Protein 6.7, Albumin 3.6, Globulin 3.1, Albumin/Globulin Ratio 1.2 Rhythm Strip Rhythm Strip: Sinus Rhythm Rate: 60 Ectopy: None Cardiology Labs/Tests 08/28/24 03:24: Hemoglobin A1c 5.3 08/29/24 06:57: WBC 9.2, RBC 4.67, Hgb 14.2, Hct 41.9, MCV 89.7, MCH 30.4, MCHC 33.9, Plt Count 301, MPV 10.8, Sodium 138, Potassium 4.1, Chloride 107, Carbon Dioxide 28.0, Anion Gap 3 L, BUN 14, Creatinine 1.00, Est GFR (MDRD) Af Amer 100, Est GFR (MDRD) Non-Af 82, BUN/Creatinine Ratio 14.0, Glucose 111 H, Calcium 8.9, Total Bilirubin 0.40 Rhythm: EKG: ECHO: Stress Test: Cardiac Cath: PCI: CT Surgery: Holter monitor: EPS: PPM: CXR: Chest CT Scan: Physical Exam Const alert and oriented x3 HEENT normocephalic Eyes PERRL Neck no JVD Chest inspection of chest normal Resp normal respiratory effort and clear to auscultation bilaterally Cardio regular rate, regular rhythm, S1 normal heart sound, S2 normal heart sound, no murmurs, no rub and no gallops Extremity Extremity Narrative: Right wrist intact no evidence of hematoma. Neuro Neuro Narrative: Alert and oriented x 3 Psych mental status grossly normal Assessment & Plan Assessment/Plan (1) ACS (acute coronary syndrome): PLAN: Patient had an acute coronary syndrome on presentation. He had a severe subtotal obstruction of his right coronary was treated with drug-eluting stent. The patient tolerated the procedure without incident. From a cardiovascular standpoint the patient can be discharged to home today. His hemoglobin A1c is 5.3 the patient is on intensive statin therapy atorvastatin 80 mg daily. He is a smoker I went over smoking cessation with him in detail. The patient should be follow-up in the [facility] office by one of our [facility] in 7 to 14 days. After that follow-up he will be scheduled for repeat catheterization to evaluate his 70% LAD lesion. This will probably need stenting after IFR. (2) Hypertension: QUALIFIERS: Hypertension type: primary hypertension Qualified Code(s): I10 - Essential (primary) hypertension PLAN: Blood pressure is well-controlled on his current meds. (3) Smoker: PLAN: I went over smoking cessation with him in great detail he denies any nicotine withdrawal symptoms at this time. PLAN: Plan 1. From a cardiovascular standpoint the patient to be discharged to home. 2. The patient should follow-up with the [facility] in 7 to 14 days. 3. Patient be scheduled for repeat catheterization to evaluate his LAD for stenting in 3 to 4 weeks. 4. It is mandatory the patient remain on dual antiplatelet therapy with Brilinta 90 mg twice daily and aspirin 81 mg daily for 1 year. This was explained to the patient in detail. Charges/Coding Visit Charges Inpatient E&M: 67447 [facility] L3
[2024-08-29] MEDS: TICAGRELOR 90 MG TABLET PO (08:46)
[2024-08-29] MEDS: Aspirin E.C. 81 MG Tablet PO (08:46)
--- NOTE | 2024-08-29 10:00 | EKG12_ITS ---
Test Reason : post cath Blood Pressure : */* mmHG Vent. Rate : 45 BPM Atrial Rate : 45 BPM P-R Int : 220 ms QRS Dur : 86 ms QT Int : 426 ms P-R-T Axes : 50 64 38 degrees QTcB Int : 368 ms Sinus bradycardia with 1st degree A-V block Otherwise normal ECG When compared with ECG of 28-Aug-2024 05:59, No significant change was found Confirmed by Triston Leon ([id number]), map editor SIDNEY MEDELLIN ([id number]) on 08/29/2024 1:06:21 PM Referred By: Glen Confirmed By: Triston Leon
[2024-08-29 10:54] VITALS: BP 112/63; PULSE 57; RESP 16; TEMP 36.6; O2SAT 97
--- NOTE | 2024-08-29 11:58 | DCINST_ITS ---
Discharge Instructions Diet Discharge Diet: - (DASH diet) DC O2, CPAP, BIPAP needs Home O2 Discharge instructions: No Dressing / Incision Discharge Activity: - (See post cath instructions) Follow Up Care Test Results: Test results from this visit will be discussed in further detail at your follow- up appointment, if applicable. Discharge Plan Admission Admit Date/Time: 08/27/24 15:19 Primary Reason for Your Visit: Chest pain Attending Provider: Darcy Carroll Primary Care Provider: Anne Jarquin Consulting Providers: Kierra Little Instructions Patient Instructions: Coronary Angioplasty Stenting Dc Additional Instructions / Restrictions: DISCHARGE INSTRUCTIONS PLEASE READ *Please take this with you to your next doctors appointment* -He will be discharged on aspirin and Brilinta 90 mg twice daily -You will be discharged on atorvastatin 80 mg for cholesterol and heart health -Please follow-up with [email or web address] in 7 to 14 days upon discharge. Please call their office to schedule hospital follow-up appointment upon discharge. -You will be discharged on lisinopril -It is strongly advised that you quit smoking -Please call your primary care provider's office upon discharge to schedule a hospital follow up within 1 week. -For any concerning signs or symptoms please call 911 or proceed to the nearest emergency department Discharge Orders/Prescriptions Prescriptions: New atorvastatin 80 mg Tablet 80 mg PO QHS 30 Days Qty: 30 0RF aspirin 81 mg Tablet,Delayed Release (Dr/Ec) 81 mg PO BREAKFAST 30 Days Qty: 30 0RF Brilinta 90 mg Tablet 90 mg PO BID 30 Days Qty: 60 0RF lisinopril 2.5 mg tablet 2.5 mg PO DAILY Qty: 30 0RF Referrals / Follow Up: Anne Jarquin MD [Primary Care Provider] - Within 2 Weeks Triston Leon MD [Med Staff - Active Staff] - Within 2 Weeks (Follow-up with [email or web address] in 7 to 14 days) Disposition Disposition (needs filled in before D/C Order can be placed): Home, Self Care
--- NOTE | 2024-08-29 12:00 | DS.PCM_ITS ---
Providers Date of Admission: 08/27/24 Date of Discharge: 08/29/24 Primary Care Physician: Dr. Anne Jarquin MD Consultations 08/27/24 19:31 Consult: Cardiology Routine Consulting Provider: Kierra Little Reason for Consult: Chest Pain, positive delta troponin EMERGENT Consult: No MD Notified: Yes Date Notified: 08/27/24 Time Notified: 19:31 Method of Notification: Verbal Reason For Visit: chest pain Diagnosis Discharge Diagnosis (1) ACS (acute coronary syndrome): Status: Acute Code(s): I24.9 - Acute ischemic heart disease, unspecified (2) Hypertension: Status: Chronic Code(s): I10 - Essential (primary) hypertension Qualifiers: Hypertension type: primary hypertension Qualified Code(s): I10 - Essential (primary) hypertension (3) Smoker: Status: Acute Code(s): F17.200 - Nicotine dependence, unspecified, uncomplicated (4) Stented coronary artery: Status: Chronic Code(s): Z95.5 - Presence of coronary angioplasty implant and graft Plan #ACS-due to coronary artery disease status post 3 stents #Tobacco use Medications at Discharge Home Medications aspirin 81 mg tablet,delayed release 81 mg PO BREAKFAST 30 days #30 tabs 08/29/24 atorvastatin 80 mg tablet 80 mg PO QHS 30 days #30 tabs 08/29/24 lisinopril 2.5 mg tablet 2.5 mg PO DAILY #30 tabs 08/29/24 ticagrelor 90 mg tablet (Brilinta) 90 mg PO BID 30 days #60 tabs 08/29/24 Hospital Course Procedures Cardiac catheterization (w/ 3 stents) and Transthoracic echo Summary of Care Provided Minutes Spent on Discharge: 27 Hospital Course: SVITLANA CHIU, is a 61-year-old male presented [facility] ED with chest pain. He had several episodes of substernal pain, lightheadedness, dyspnea, weakness, fatigue with the discomfort radiating to his left shoulder with light activity all within the same day and each episode resolved with rest. Initially troponin negative and plan was for admission with echo and stress test however repeat troponin, while within normal range, did have a positive delta so stress test was canceled, this was discussed with cardiology and patient placed on heparin drip with plans for heart cath. Patient underwent heart catheterization 08/28/2024 requiring 3 stents. During his hospitalization patient placed on Brilinta 90 mg twice daily and aspirin 81 mg and will need to take both for 1 year, placed on statin. Was initially placed on beta-kim however heart rate consistently around 50 so this was held due to concerns for bradycardia but JOHNATHAN inhibitor was started on discharge. Patient to follow-up with [facility] in 7 to 14 days and will likely need repeat heart catheterization to evaluate LAD for stenting in 3 to 4 weeks. On day of discharge patient with no shortness of breath or chest pain, no new acute complaints. Discharge instructions as followed: -He will be discharged on aspirin and Brilinta 90 mg twice daily -You will be discharged on atorvastatin 80 mg for cholesterol and heart health -Please follow-up with [facility] in 7 to 14 days upon discharge. Please call their office to schedule hospital follow-up appointment upon discharge. -You will be discharged on lisinopril -It is strongly advised that you quit smoking -Please call your primary care provider's office upon discharge to schedule a hospital follow up within 1 week. -For any concerning signs or symptoms please call 911 or proceed to the nearest emergency department Physical Exam Narrative General: Alert, oriented, no apparent distress HEENT: Atraumatic, normocephalic Eyes: Anicteric, normal conjunctiva, extraocular movements grossly intact Neck: Supple Respiratory: Clear to auscultation bilaterally, normal respiratory effort Cardiovascular: Regular rate and rhythm GI: Soft, nontender, nondistended Extremities: No edema Musculoskeletal: Moving all extremities Neuro: No overt focal neurological deficits Skin: No rashes appreciated Psych: Cooperative Weight / BMI Weight Weight: 98.611 kg Body Mass Index (BMI) 27.1 ABG / Lab / Microbiology Data 08/29/24 06:57 08/29/24 06:57 Laboratory: Laboratory Results - last 24 hr 08/29/24 06:57: WBC 9.2, RBC 4.67, Hgb 14.2, Hct 41.9, MCV 89.7, MCH 30.4, MCHC 33.9, RDW Std Deviation 38.7, RDW Coeff of Carlee 11.9, Plt Count 301, MPV 10.8, Sodium 138, Potassium 4.1, Chloride 107, Carbon Dioxide 28.0, Anion Gap 3 L, BUN 14, Creatinine 1.00, Estim Creat Clear Calc 98.58, Est GFR (MDRD) Af Amer 100, Est GFR (MDRD) Non-Af 82, BUN/Creatinine Ratio 14.0, Glucose 111 H, Calcium 8.9, Total Bilirubin 0.40, AST 16, ALT 27, Alkaline Phosphatase 81, Total Protein 6.7, Albumin 3.6, Globulin 3.1, Albumin/Globulin Ratio 1.2 Radiography Diagnostic Testing: Radiology Impression Echocardiogram 08/27/24 15:24 Interpretation Summary The estimated ejection fraction is 70 %. No evidence for diastolic dysfunction. Ordering Physician: Darcy Carroll Referring Physician: Anne Jarquin M.D. Performed By: Perla Cowan RCS D/C Instructions Discharge Diet: - (DASH diet) DC O2, CPAP, BIPAP Needs Home O2 Discharge instructions: No Meaningful Use Info Meaningful Use Meaningful Use Diagnoses (Choose all that apply): AMI AMI/Post PCI/Angioplasty Aspirin given w/in 24hrs of arrival?: Yes ASA at discharge?: Yes Antiplatelet Therapy at Discharge:: Yes Statins at discharge?: Yes Johnathan/ARB at discharge?: Yes Beta Kim at discharge?: No Reason Beta Kim not ordered:: Hypotension (Bradycardia) Done w/ Acute VT measure.: Yes Ischemic Stroke Statin Dosing Therapy Reference: STATIN DOSE THERAPY REFERENCE: * Patients > 75 years receive moderate or high dose statin therapy. * Patients 75 years or YOUNGER should receive HIGH intensity statin dose unless contraindicated. You will be required to document reason for non-treatment if statin daily dose does not meet guidelines. HIGH DOSE STATIN THERAPY DAILY Atorvastatin > than or = to 40 mg Rosuvastatin > than or = to 20 mg Amlodipine + Atorvastatin > than or = to 2.5/40 mg Ezetimibe + Simvastatin 10/80 mg Simvastatin 80mg Discharge Plan Admission Admit Date/Time: 08/27/24 15:19 Primary Reason for Your Visit: Chest pain Attending Provider: Darcy Carroll Primary Care Provider: Anne Jarquin Consulting Providers: Kierra Little Instructions Patient Instructions: Coronary Angioplasty Stenting Dc Additional Instructions / Restrictions: DISCHARGE INSTRUCTIONS PLEASE READ *Please take this with you to your next doctors appointment* -He will be discharged on aspirin and Brilinta 90 mg twice daily -You will be discharged on atorvastatin 80 mg for cholesterol and heart health -Please follow-up with [facility] in 7 to 14 days upon discharge. Please call their office to schedule hospital follow-up appointment upon discharge. -You will be discharged on lisinopril -It is strongly advised that you quit smoking -Please call your primary care provider's office upon discharge to schedule a hospital follow up within 1 week. -For any concerning signs or symptoms please call 911 or proceed to the nearest emergency department Discharge Orders/Prescriptions Prescriptions: New atorvastatin 80 mg Tablet 80 mg PO QHS 30 Days Qty: 30 0RF aspirin 81 mg Tablet,Delayed Release (Dr/Ec) 81 mg PO BREAKFAST 30 Days Qty: 30 0RF Brilinta 90 mg Tablet 90 mg PO BID 30 Days Qty: 60 0RF lisinopril 2.5 mg tablet 2.5 mg PO DAILY Qty: 30 0RF Referrals / Follow Up: Anne Jarquin MD [Primary Care Provider] - Within 2 Weeks Triston Leon MD [Med Staff - Active Staff] - Within 2 Weeks (Follow-up with [facility] in 7 to 14 days) Disposition Disposition (needs filled in before D/C Order can be placed): Home, Self Care Charges/Coding Visit Charges Inpatient E&M: 97703 Disch Hosp
--- NOTE | 2024-08-29 12:37 | PHA.DC.MC.R ---
Pharmacy [facility] Pharmacy Service has performed discharge medication reconciliation and counseling for this patient. 1. ASPIRIN 81MG PO BREAKFAST 2. ATORVASTATIN 80MG PO QHS 3. LISINOPRIL 2.5MG PO DAILY 4. TICAGRELOR 90MG PO BID The patient's discharge medication list was reviewed for discrepancies and discrepancies were resolved. The patient was counseled on the following discharge medications and changes in medications for homegoing were reviewed. The Reason for Use, instructions for use, and potential side effects were reviewed for all new medications. The patient's questions regarding all of their medications were answered. The patient was able to verbally demonstrate an understanding of their discharge medications. Medications at Discharge Home Medications aspirin 81 mg tablet,delayed release 81 mg PO BREAKFAST 30 days #30 tabs 08/29/24 atorvastatin 80 mg tablet 80 mg PO QHS 30 days #30 tabs 25 lisinopril 2.5 mg tablet 2.5 mg PO DAILY #30 tabs 08/29/24 ticagrelor 90 mg tablet (Brilinta) 90 mg PO BID 30 days #60 tabs 08/29/24
[2024-08-29 12:51] VITALS: BP 133/73; PULSE 59; RESP 16; TEMP 36.6; O2SAT 97
--- NOTE | 2024-08-29 13:17 | CASEMGMT ---
Patient has order for discharge. Patient discharging on Brilinta. RN CM in to discuss needs at discharge. RN CM provided $5 copay card to patient. Patient denies needs or help at discharge, at bedside. Patient had no further questions.
--- NOTE | 2024-09-02 12:23 | CL.I_ITS ---
Patient Name: SVITLANA CHIU Study Date: 08/28/2024 Performing: Yunior Amin MD Ht: 75 inches 190.5 cm : 1965 Wt: 217.7 lbs 98.61 kg Age: 58 Gender: male BSA: 2.27 PROCEDURE(S) PERFORMED DC01-(78816)LHC/COR/LV IC12-(98202/C9600)NARCISO W/WO PTCA, SINGLE CORONARY ARTERY CLINICAL PROFILE AND CO-MORBIDITIES Indications: ACS <= 24 hrs. Unstable angina Heart Failure: None CONCLUSIONS CAD as described. Preserved LV systolic function. No significant aortic stenosis or mitral regurgitation. Successful drug-eluting stent to mid RCA. RECOMMENDATIONS Patient should return for PCI of the LAD in about 2 weeks DESCRIPTION OF PROCEDURE The patient arrived to the procedure lab. The risks and benefits of the procedure as well as a full description of our services here and lack of surgical backup were fully explained to the patient and/or their significant other prior to the catheterization. The Timeout was completed, verifying the correct patient and procedure. The patient's procedural site was prepped and draped in the usual fashion. Local anesthetic was given subcutaneously to right radial region with Lidocaine 2%. Using a modified Seldinger technique, arterial access was obtained via the right radial artery, a 6Fr sheath was inserted.. Left Coronary Artery selective angiography was performed in multiple views using a 5 Fr. JL3.5 catheter. Left Ventriculography was performed in KAUFMAN projection using a 5 Fr. JR4. LV to AO pullback pressures were then recorded. Right Coronary Artery selective angiography was then performed in multiple views using a 5 Fr. JR 4 catheterThe images were reviewed and options discussed. A decision was then made to proceed with an Intervention, IVUS or other adjunct procedure. JR4 Guide catheter was inserted and engaged into the RCA. BMW [place] Guide wire was advanced to the RCA. Emerge 2.25 x 12 Balloon catheter was inserted. Balloon catheter was advanced across lesion in the right coronary, mid. PTCA balloon inflated at 8 atms for 14 secs. Angiogram performed post balloon dilatation. Landers Otero 2.25 x 12 Drug Eluting stent was inserted. Drug Eluting stent was advanced across the lesion in the right coronary, mid. Angiogram performed post stent deployment. Landers Otero 2.25 x 8 Drug Eluting stent was inserted. Drug Eluting stent was advanced across the lesion in the right coronary, mid. Angiogram performed pre stent deployment. Angiogram performed post balloon dilatation. Landers Otero 2.5 x 26 Drug Eluting stent was inserted. Drug Eluting stent was advanced across the lesion in the right coronary, proximal. Angiogram performed pre stent deployment. Angiogram performed post stent deployment. The arterial sheath was pulled and a TR Band was applied for hemostasis CORONARY ANGIOGRAPHY DOMINANCE: Right Dominant LEFT HEART ASSESSMENT Left Ventricular Ejection Fraction: by Echo 60 % Normal LV wall motion LEFT MAIN: Mild luminal irregularities LEFT ANTERIOR DESCENDING ARTERY: PROX LAD: 60 % Stenosis DISTAL LAD: 80 % Stenosis CIRCUMFLEX ARTERY: PROX CIRC: 40 % Stenosis OM 1: Proximal - 30 % Stenosis RIGHT CORONARY ARTERY: MID RCA: 95 % Stenosis VALVE FINDINGS: No Aortic Valve Stenosis No Mitral Insufficiency INTERVENTION INFORMATION LESION SITE: RCA (Mid) Lesion Complexity: High/C, chronic total occlusion: No, lesion at bifurcation: No, thrombus present: No, lesion length: 30 mm, culprit lesion: Yes, Previously treated lesion: No Pre Stenosis: 95 % Pre intervention SHANICE flow: 2 PROCEDURE: Drug Eluting Stent with pre dilatation. Post Stenosis: 0 % Post intervention SHANICE flow: 3 Lesion Devices: Cordis 6 Fr JR4 100cm Guide Catheter Pressley .014 190cm BMW [place] Straight Migue Sci EMERGE MR 2.25x12 BALLOON Medtronic 2.25 x 12 CAITIE FRONTIER NARCISO Medtronic 2.25 x 08 CAITIE FRONTIER NARCISO Medtronic 2.50 x 26 CAITIE FRONTIER NARCISO COMPLICATIONS No Complications PROCEDURE MEDICATIONS Versed 1 mg IV Fentanyl 50 mcg IV Oxygen: 2 L/min via nasal cannula Heparin given IA 08/28/2024 09:11:06 Heparin 3000 unit(s) IV 08/28/2024 09:25:50 Verapamil 2.5mg, Ntg 100mcgs, 3000 units of Heparin given IA 08/28/2024 09:11:06 SUMMARY OF HEMODYNAMIC DATA Time AIR REST ECG 08:56:41 AO 105/61 (78) SA 09:13:25 LV 115/4, 14 09:19:52 LV 116/5, 14 09:20:00 LV 124/6, 21 09:20:56 LV 122/4, 15 09:21:04 LVp 119/2, 14 09:21:13 AOp 110/60 (81) 09:21:20 Signed By Yunior Amin MD On 09/02/2024 12:22:39 Yunior Amin MD
== END 2024-08-29 12:06 | disposition home or self-care (01) ==
LOC: ED 13:54 → PCU 15:37
PROVIDERS: Specialist; Admitting Provider Internal Medicine; Emergency Provider Emergency Medicine; PCP Internal Medicine; Visit Provider Internal Medicine
DX: I25.110 Atherosclerotic heart disease of native coronary artery with unstable angina pectoris (principal); I10 Essential (primary) hypertension; Z82.49 Family history of ischemic heart disease and other diseases of the circulatory system; F17.220 Nicotine dependence, chewing tobacco, uncomplicated; F17.210 Nicotine dependence, cigarettes, uncomplicated
CPT/HCPCS: 36415; 71045; 80048; 80053; 80061; 83036; 84484; 85025; 85027; 85610; 85730; 92928; 93005; 93306; 93458; 96365; 96366; 96376; 99152; 99153; 99221; 99285; Q9967; A4216; C1725; C1769; C1874; C1887; C1894; C9600; G0378

== ENCOUNTER 2024-08-31 21:09 | Emergency (ER) | payer OTHER, SELFPAY ==
[2024-08-31] VITALS (13 sets, daily range): BP systolic 110–181; BP diastolic 66–87; PULSE 55–73; RESP 12–20; TEMP 36.6; O2SAT 95–100; BMI 28.5
--- NOTE | 2024-08-31 21:38 | EKG12_ITS ---
Test Reason : CP Blood Pressure : */* mmHG Vent. Rate : 64 BPM Atrial Rate : 64 BPM P-R Int : 182 ms QRS Dur : 74 ms QT Int : 380 ms P-R-T Axes : 58 67 36 degrees QTcB Int : 392 ms Normal sinus rhythm Normal ECG Confirmed by Triston Leon ([id number]), pictures editor SIDNEY MEDELLIN ([id number]) on 09/04/2024 10:40:35 AM Referred By: CHINO Confirmed By: Triston Leon
--- NOTE | 2024-08-31 21:40 | RAD_ITS ---
PROCEDURE: CHEST PA AND LATERAL REASON FOR EXAM: Chest pain TECHNIQUE: Frontal and lateral views of the chest. 4 total images, 2 frontal and 2 laterals to include the entire chest COMPARISON: 08/27/2024 FINDINGS: The lungs are clear. Pulmonary vascularity appears within limits. No pneumothorax or pleural effusion. The cardiac and mediastinal contours appear within limits. Status post anterior cervical disc fusion lower cervical spine. RAD/Chest PA and Lateral IMPRESSION: No evidence of acute disease. Reading Location: [id number]
--- NOTE | 2024-08-31 22:03 | ED.VIS.CHEST ---
HPI History of Present Illness Chief Complaint: Chest Pain Narrative Narrative: Patient is a 58-year-old male with past medical history of CAD with recent stent placement on Wednesday, alcohol use, tobacco use who presented to the emerged part with chief complaint of chest pain. Patient states that 1030 this morning he was letting the dogs outside he walked inside and noted that he had some mild shortness of breath and chest discomfort on the left side. States that this has been constant all day not getting any better. Notes that this is a burning sensation. Patient states that he tried to get a hold of Dr. Leon office throughout the day and was unable to do so therefore he called the after-hours line and spoke with Dr. Leon himself who advised him to come here for valuation management. [facility] Medical History Atherosclerotic heart disease of [place] coronary artery without angina pectoris (08/28/24) Chewing tobacco nicotine dependence Alcohol use History of steroid therapy Back pain Smoker History of pain when walking History of edema Home Medications ?Medication ?Instructions ?Recorded ?Last Taken ?Type aspirin 81 mg tablet,delayed 81 mg PO BREAKFAST 30 days #30 tabs 08/29/24 Unknown Rx release atorvastatin 80 mg tablet 80 mg PO QHS 30 days #30 tabs 08/29/24 Unknown Rx lisinopril 2.5 mg tablet 2.5 mg PO DAILY #30 tabs 08/29/24 Unknown Rx ticagrelor 90 mg tablet (Brilinta) 90 mg PO BID 30 days #60 tabs 08/29/24 Unknown Rx Allergy/AdvReac Type Severity Reaction Status Date / Time No Known Allergies Allergy Verified 08/31/24 21:09 Family History Father Lung cancer Mother Heart disease Alzheimer disease Alzheimer's dementia Surgical History Stented coronary artery (08/28/24) History of tonsillectomy History of lumbar laminectomy History of shoulder surgery History of fusion of cervical spine Social History adopted: No household members: spouse housing: house number of children: 4 current occupational status: employed 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 current occupational exposures/hazards: No pets and animals: Yes leisure activities: sports, exercise, hunting, fishing and other history of recent travel: Yes sexually active: Yes Smoking Status: Current every day smoker tobacco type: cigarettes and smokeless tobacco alcohol intake: current details: 12 pack a month substance use type: does not use well-balanced diet: daily or most days caffeine: Yes eating out: rarely or never during the past year weight has: increased > 10 lbs what type of physical activity do you participate in: walking and weight training frequency: daily yaneth/taoist: Advent seatbelt use: always do you feel safe at home: Yes ROS ROS ED ROS Narrative Constitutional: Denies fever, chills, headaches, lightness, dizziness Cardiovascular: Complains of chest pain as noted above denies palpitations Respiratory: Complains of shortness of breath as noted above denies coughing wheezing Abdomen: Denies abdominal pain nausea vomit diarrhea : Denies any urinary symptoms Neurological: Denies numbness, weakness, tingling Musculoskeletal: Denies back pain Skin: Denies rashes or lesions EXAM Physical Exam Narrative Exam Narrative: General: Patient is lying in bed rest comfortably did not appear to be in acute distress Head: Atraumatic, normocephalic Eyes: PERRL bilaterally, EOMI bilateral, no conjunctival injection noted Neck: Soft, supple, trachea midline Cardiovascular: Regular rate and rhythm no murmurs gallops rubs noted Respiratory: Clear to auscultation bilaterally no rales rhonchi or wheezes noted Abdomen: Soft, nondistended, nontender to palpation, bowel sounds present x 4 Extremities: Radial pulses +2/4 in the bilateral extremities, +5/5 strength noted in the bilateral upper and lower extremities. Neurological: Patient following commands knew that he was at [facility] year is 2024 Skin: Warm, dry, intact no rashes or lesions noted Const Vital Signs: 08/31/24 21:09 08/31/24 21:52 08/31/24 21:52 Temperature 97.8 F Temperature Source Temporal Pulse Rate 73 Respiratory Rate 17 Respiratory Effort Normal Short of Breath Blood Pressure 181/72 H Blood Pressure Mean 108 Pulse Ox 99 98 Oxygen Delivery Method Room Air Room Air 08/31/24 22:01 08/31/24 22:02 08/31/24 22:09 Temperature Temperature Source Pulse Rate 69 65 58 L Respiratory Rate 16 19 H 16 Respiratory Effort Blood Pressure 134/67 H 118/66 Blood Pressure Mean 86 83 Pulse Ox 95 99 98 Oxygen Delivery Method Room Air 08/31/24 22:15 08/31/24 22:30 08/31/24 22:38 Temperature Temperature Source Pulse Rate 57 L 55 L 64 Respiratory Rate 17 12 16 Respiratory Effort Blood Pressure 130/69 H 118/66 120/67 Blood Pressure Mean 85 81 82 Pulse Ox 97 98 99 Oxygen Delivery Method Room Air 08/31/24 22:45 08/31/24 23:00 08/31/24 23:15 Temperature Temperature Source Pulse Rate 57 L 61 56 L Respiratory Rate 17 20 H 18 Respiratory Effort Blood Pressure 131/71 H 110/70 129/80 H Blood Pressure Mean 88 83 94 Pulse Ox 99 97 100 Oxygen Delivery Method Room Air 08/31/24 23:30 08/31/24 23:45 09/01/24 00:00 Temperature Temperature Source Pulse Rate 59 L 60 59 L Respiratory Rate 17 14 17 Respiratory Effort Blood Pressure 153/87 H 153/83 H 125/73 H Blood Pressure Mean 109 103 88 Pulse Ox 99 100 99 Oxygen Delivery Method Room Air Room Air MDM MDM MDM Narrative Medical decision making narrative: Patient is a 58-year-old male who presented to the emerged part with chief complaint of chest pain since 10:30 AM he states that he has been constant nothing makes it better or worse. On the differential diagnose includes but not limited to Nilo syndrome, ACS, pneumonia, pneumothorax. Once workup is obtained reviewed he will be reevaluated. Bedside echocardiogram was done at bedside and showed no pericardial effusion largely the ejection fraction looks normal. Patient CBC was largely unremarkable no evidence leukocytosis white blood count normal at 9.4, hemoglobin 15.1, plate count noted be normal at 332. Patient INR normal at 0.9, PT of 12.8. Patient sodium normal 140, potassium normal 3.8, creatinine normal at 0.94. Patient's proBNP was less than 36, troponin was noted be 67. Patient's EKG was reviewed by myself showed sinus rhythm with a rate of 64 bpm this was compared to his previous EKG from 08/29/2024 which was largely unchanged. Patient chest x-ray reviewed by myself by radiology showed no acute cardiopulmonary processes. I called and discussed case with on-call consulting database administrator Dr. Leon who reviewed everything and he states that the elevated troponin is likely secondary to his heart cath and is residual as his symptoms have been going on since 10:30 AM this morning and they have been constant nothing making this better or worse. Delta troponin will be obtained. He states that if the patient is still having shortness of breath he is to call his office and they will switch him from Brilinta to Plavix. He states that before he went to the Electrophysiologist he was given Brilinta at that point time he had shortness of breath as well. Patient's delta troponin came back and was noted to be 66. At this point time patient will be discharged home with instructions to call Dr. Leon office for follow-up appointment. He is encouraged return with worsening symptoms or any concerns. He is agreeable this plan all question concerns answered is discharged home in stable condition. Lab Data Labs: Laboratory Results - last 24 hr 08/31/24 08/31/24 21:23 23:45 WBC 9.4 RBC 4.95 Hgb 15.1 Hct 44.5 MCV 89.9 MCH 30.5 MCHC 33.9 RDW Std Deviation 39.3 RDW Coeff of Carlee 12.0 Plt Count 332 MPV 11.1 Immature Gran % (Auto) 0.800 Neut % (Auto) 54.5 Lymph % (Auto) 31.1 Stoddard % (Auto) 8.1 Eos % (Auto) 4.2 Baso % (Auto) 1.3 H Absolute Neuts (auto) 5.1 Absolute Lymphs (auto) 2.93 Nucleated RBC % 0 PT 12.8 INR 0.9 APTT 31.6 Sodium 140 Potassium 3.8 Chloride Direct 105 Carbon Dioxide 23.5 Anion Gap 11 BUN 20 H Creatinine 0.94 Estim Creat Clear Calc 114.41 Est GFR (MDRD) Non-Af 95 BUN/Creatinine Ratio 20.8 H Glucose 103 H Calcium 9.5 Troponin T High Sens 67 H* Troponin T Hi Sens 2 Hr 66 H* Troponin T Hi Sens 2Hr Delta 1 NT pro BNP II < 36 Radiography Diagnostic Testing: Clinical Impression(s) from Imaging Studies Chest X-Ray 08/31/24 21:40 IMPRESSION: No evidence of acute disease. Reading Location: [id number] Discharge Plan Triage Chief Complaint: Chest Pain ED Provider: Sameer Torrez Dx/Rx/DC Orders Clinical Impression: Chest pain Prescriptions: No Action atorvastatin 80 mg Tablet 80 mg PO QHS 30 Days Qty: 30 0RF aspirin 81 mg Tablet,Delayed Release (Dr/Ec) 81 mg PO BREAKFAST 30 Days Qty: 30 0RF Brilinta 90 mg Tablet 90 mg PO BID 30 Days Qty: 60 0RF lisinopril 2.5 mg tablet 2.5 mg PO DAILY Qty: 30 0RF Primary Care Provider: Anne Jarquin Referrals: Anne Jarquin MD [Primary Care Provider] - Activity Restrictions/Additional Instructions: Follow-up with Dr. Leon in the outpatient setting. If your shortness of breath persist call his office as he will likely switch you from Brilinta to Plavix. I did discuss with Dr. Edward rae and notified him of all your blood test and he feels that it is safe for you to go home. Return with worsening symptoms or any other concerns. Print Language: Czech Disposition Disposition: Home, Self Care
[2024-08-31 22:07] LABS: Absolute Lymphocyte Count 2.93 X10^3/uL (0.83-4.51); Absolute Neutrophil Count 5.1 X10^3/uL (2.0-7.7); Basophil# 0.12 X10^3/uL; Basophil% 1.3 % (0-1); Eosinophils% 4.2 % (0-5); Hematocrit 44.5 % (40-54); Hemoglobin 15.1 g/dL (13.0-16.5); Lymphocyte # 2.93 X10^3/ul (0.83-4.51); Lymphocyte % 31.1 % (19-41); Mean Corp Hgb Conc 33.9 g/dL (32-36); Mean Corpuscular Hgb 30.5 pg (27.0-32.0); Mean Corpuscular Volume 89.9 fL (80-94); Mean Platelet Vol. 11.1 fl (6.2-12.0); Monocyte# 0.76 X10^3/uL; Monocyte% 8.1 % (0-10); NRBC Flagged by Analyzer 0 % (0-5); Neutrophil # 5.13 X10^3/uL (2.7-7.7); Neutrophil % 54.5 % (47-70); Platelet Count 332 K/mm3 (150-450); RBC Distribution Width SD 39.3 fl (35.1-43.9); Red Blood Count 4.95 M/mm3 (4.6-6.2); White Blood Count 9.4 K/mm3 (4.4-11.0)
[2024-08-31 22:13] LABS: International Normalized Ratio 0.9; Prothrombin Time (Protime)PT. 12.8 SECONDS (11.7-14.9)
[2024-08-31 22:14] LABS: Partial Thromboplast Time 31.6 Seconds (24.1-36.2)
[2024-08-31 22:27] LABS: Anion Gap 11 (5-15); BUN 20 mg/dL (4-19); BUN/Creat Ratio 20.8 RATIO (10-20); Calcium 9.5 mg/dL (7.6-11.0); Carbon Dioxide 23.5 mmol/L (22.0-29.0); Chloride 105 mmol/L (96-108); Creatinine, Serum 0.94 mg/dL (0.70-1.20); EST Glomerular Filtration Rate 95 (>60); Estimated Creatinine Clearance 114.41 ml/min; Glucose 103 mg/dL (70-99); Potassium 3.8 mmol/L (3.3-5.1); Sodium Level 140 mmol/L (133-145)
[2024-08-31 22:33] LABS: Pro- Brain NATRIURETIC PEPTIDE < 36 pg/mL (<=900); Troponin T High Sensitivity 67 ng/L (<=22)
[2024-09-01] VITALS: BP 125/73; PULSE 59; RESP 17; O2SAT 99
[2024-09-01 00:20] LABS: TROPONIN VARIANCE 2 HR 1; Troponin T High Sens 2 HR 66 ng/L (<=22)
[2024-09-01 00:47] VITALS: BP 120/67; PULSE 67; RESP 12; TEMP 36.6; O2SAT 99
== END 2024-09-01 00:48 | disposition home or self-care (01) ==
PROVIDERS: Emergency Provider Emergency Medicine; PCP Internal Medicine; Visit Provider Emergency Medicine
DX: R07.9 Chest pain, unspecified (principal); F17.210 Nicotine dependence, cigarettes, uncomplicated; I25.10 Atherosclerotic heart disease of native coronary artery without angina pectoris; Z95.5 Presence of coronary angioplasty implant and graft; R06.02 Shortness of breath
CPT/HCPCS: 71046; 80048; 83880; 84484; 85025; 85610; 85730; 93005; 99284; A4216

== ENCOUNTER → 2024-09-20 | Outpatient (CLI) | payer OTHER, SELFPAY ==
[2024-09-20 09:41] LABS: Absolute Lymphocyte Count 2.09 X10^3/uL (0.83-4.51); Absolute Neutrophil Count 5.2 X10^3/uL (2.0-7.7); Basophil% 1.2 % (0-1); Eosinophil# 0.33 X10^3/uL; Eosinophils% 3.9 % (0-5); Hematocrit 42.1 % (40-54); Hemoglobin 14.8 g/dL (13.0-16.5); Lymphocyte # 2.09 X10^3/ul (0.83-4.51); Lymphocyte % 24.4 % (19-41); Mean Corp Hgb Conc 35.2 g/dL (32-36); Mean Corpuscular Hgb 30.8 pg (27.0-32.0); Mean Corpuscular Volume 87.5 fL (80-94); Monocyte# 0.76 X10^3/uL; Monocyte% 8.9 % (0-10); NRBC Flagged by Analyzer 0 % (0-5); Neutrophil # 5.23 X10^3/uL (2.7-7.7); Neutrophil % 60.9 % (47-70); Platelet Count 310 K/mm3 (150-450); RBC Distribution Width CV 11.9 % (11.6-14.6); Red Blood Count 4.81 M/mm3 (4.6-6.2); White Blood Count 8.6 K/mm3 (4.4-11.0)
[2024-09-20 10:01] LABS: Prothrombin Time (Protime)PT. 12.9 SECONDS (11.7-14.9)
[2024-09-20 10:02] LABS: Partial Thromboplast Time 30.2 Seconds (24.1-36.2)
[2024-09-20 10:04] LABS: Anion Gap 13 (5-15); BUN 14 mg/dL (4-19); Calcium,Total 9.5 mg/dL (7.6-11.0); Chloride 102 mmol/L (98-108); Creatinine, Serum 0.96 mg/dL (0.70-1.20); EST Glomerular Filtration Rate 93 (>60); Glucose 114 mg/dL (70-99); Sodium Level 135 mmol/L (133-145)
[2024-09-20 10:16] LABS: Magnesium 2.2 mg/dL (1.5-2.2)
[2024-09-20 10:22] LABS: PSA,Total - Annual Screen 0.64 ng/mL (0.02-4.00); Vitamin B12 516 pg/mL (180-914); Vitamin D,25 Hydroxy 28.3 ng/mL (30-100)
== END | disposition home or self-care (01) ==
LOC: LAB 08:40
PROVIDERS: PCP Internal Medicine; Referring Provider Nurse Practitioner Family; Visit Provider Nurse Practitioner Family
DX: I25.10 Atherosclerotic heart disease of native coronary artery without angina pectoris (principal); I24.9 Acute ischemic heart disease, unspecified; Z95.5 Presence of coronary angioplasty implant and graft; I10 Essential (primary) hypertension; Z12.5 Encounter for screening for malignant neoplasm of prostate; E55.9 Vitamin D deficiency, unspecified; E53.8 Deficiency of other specified B group vitamins
CPT/HCPCS: 36415; 80048; 82306; 82607; 83735; 84153; 84443; 85025; 85610; 85730; G0103

== ENCOUNTER 2024-10-05 08:32 | Day surgery (SDC) | payer OTHER, SELFPAY ==
[2024-10-04 08:29] VITALS: BMI 28.2
--- NOTE | 2024-10-05 11:40 | EKG12_ITS ---
Test Reason : POST PCI Blood Pressure : */* mmHG Vent. Rate : 53 BPM Atrial Rate : 53 BPM P-R Int : 206 ms QRS Dur : 86 ms QT Int : 412 ms P-R-T Axes : 59 63 41 degrees QTcB Int : 386 ms Sinus bradycardia with sinus arrhythmia Otherwise normal ECG When compared with ECG of 31-Aug-2024 21:26, No significant change was found Confirmed by JOSE M HAMM, XOCHILT ([id number]), science editor SIDNEY MEDELLIN ([id number]) on 10/09/2024 2:03:05 PM Referred By: Preeti Amin Confirmed By: XOCHILT SALGUERO MD
--- NOTE | 2024-10-05 11:56 | CRPH1.INSTRU ---
General Education Discussed with Patient CAD and cardiac anatomy and function:: Patient communicates acknowledgment and Family communicates acknowledgment Explanation of diagnoses and procedures:: Patient communicates acknowledgment and Family communicates acknowledgment Sign/Symptoms of AR:: Patient communicates acknowledgment and Family communicates acknowledgment Antiplatelet therapy: Patient communicates acknowledgment and Family communicates acknowledgment Proper use of NTG-SL: Patient communicates acknowledgment Emergency procedures and activation of EMS: Patient communicates acknowledgment and Family communicates acknowledgment Compliance of all prescribed medications: Patient communicates acknowledgment and Family communicates acknowledgment Smoking Recommendations Recommendations Include:: Smoking cessation strategies/Smoking packet Response Code Nicotine/Smoking Response Code:: Patient communicates acknowledgment Dyslipidemia Risk Factors Patient Dyslipidemia Risk Factors Are:: Total Cholesterol Recommendations Recommendations Include:: Lipid profile not available Response Code Dyslipidemia Response Code:: Patient communicates acknowledgment Overweight/Obesity Risk Factors Patient Overweight/Obesity Risk Factors Are:: Overweight = 26-29 Recommendations Recommendations Include:: Reduced calorie diet and Exercise 5-7 times/week Response Code Overweight/Obesity:: Patient communicates acknowledgment Hypertension Recommendations Recommendations Include:: Maintain BP <130/85 Response Code Hypertension:: Patient communicates acknowledgment Heart Disease Risk Factors Patient Heart Disease Risk Factors Are:: Family history of heart disease < 65 years old and Previous cardiac event Recommendations Recommendations Include:: Educated family members of their risk and Educated family members of importance of prevention of heart disease Response Code Heart Disease Response Code:: Patient communicates acknowledgment Diabetes Risk Factors Patient Diabetes Risk Factors Are:: No documented hx of diabetes Metabolic Syndrome Risk Factors Patient Metabolic Syndrome Risk Factors Are [3 of 5]:: Hypertension Recommendations Recommendations Include:: Reinforce compliance to risk factor modifications and Encouraged follow-up with Primary Care Physician Response Code Metabolic Syndrome Response Code:: Patient communicates acknowledgment Sedentary Recommendations Recommendations Include:: Benefits of regular exercise Response Code Sedentary Response Code:: Patient communicates acknowledgment and Family communicates acknowledgment Stress Recommendations Recommendations Include:: Identification of stressors, and assessment of coping skills and Stress management techniques Response Code Stress Response Code:: Patient communicates acknowledgment and Family communicates acknowledgment
--- NOTE | 2024-10-05 13:08 | CL.I_ITS ---
Patient Name: SVITLANA CHIU Study Date: 10/05/2024 Performing: Yunior Amin MD Ht: 75 inches 190.5 cm : 1965 Wt: 226 lbs 102.51 kg Age: 58 Gender: male BSA: 2.31 PROCEDURE(S) PERFORMED IC12-([id number]/C9600)NARCISO W/WO PTCA, SINGLE CORONARY ARTERY IC12-([id number]/[id number])NARCISO W/WO PTCA, SINGLE CORONARY ARTERY CLINICAL PROFILE AND CO-MORBIDITIES Indications: CAD, staged PCI of LAD and LCx Heart Failure: None CONCLUSIONS Successful NARCISO to pLAD and pLCx RECOMMENDATIONS DESCRIPTION OF PROCEDURE The patient arrived to the procedure lab. The risks and benefits of the procedure as well as a full description of our services here and current unavailability of surgical backup were fully explained to the patient and/or their significant other prior to the catheterization. The Timeout was completed, verifying the correct patient and procedure. The patient's procedural site was prepped and draped in the usual fashion. Local anesthetic was given subcutaneously to right radial region with Lidocaine 2%. Using a modified Seldinger technique, arterial access was obtained via the right radial artery, a 6Fr sheath was inserted.. XB 3 Guide catheter was inserted and engaged into the LCA. BMW Guide wire was advanced to the LAD. 3x12 Emerge Balloon catheter was inserted. Balloon catheter was advanced across lesion in the LAD, proximal. PTCA balloon inflated at 6 atms for 10 secs. PTCA balloon inflated at 6 atms for 6 secs. PTCA balloon inflated at 10 atms for 19 secs. PTCA balloon inflated at 6 atms for 6 secs. Angiogram performed post balloon dilatation. 3x38 Roberts Drug Eluting stent was inserted. Drug Eluting stent was advanced across the lesion in the LAD, proximal. Angiogram performed post stent deployment. BMW Guide wire was advanced to the Circumflex. 3x12 Roberts Drug Eluting stent was inserted. Drug Eluting stent was advanced across the lesion in the circumflex, proximal. Angiogram performed post stent deployment. The arterial sheath was pulled and a TR Band was applied for hemostasis. 10cc of air applied INTERVENTION INFORMATION LESION SITE: LAD (Proximal) Lesion Complexity: High/C, chronic total occlusion: No, lesion at bifurcation: Yes, thrombus present: No, lesion length: 38mm, culprit lesion: Yes, Previously treated lesion: No Pre Stenosis: 80 % Pre intervention SHANICE flow: 3 PROCEDURE: Drug Eluting Stent with pre dilatation. Post Stenosis: 0 % Post intervention SHANICE flow: 3 Lesion Devices: Pressley .014 190cm BMW [place] Straight Cordis 6 Fr XB3.0 100cm Guide Catheter Migue Sci EMERGE MR 3.00x12 BALLOON Medtronic 3.0 x 38 CAITIE FRONTIER NARCISO LESION SITE: Circumflex (Proximal) Lesion Complexity: High/C, chronic total occlusion: No, lesion at bifurcation: No, thrombus present: No, lesion length: 11 mm, culprit lesion: Yes, Previously treated lesion: No Pre Stenosis: 70 % Pre intervention SHANICE flow: 3 PROCEDURE: Drug Eluting Stent Post Stenosis: 0 % Post intervention SHANICE flow: 3 Lesion Devices: Pressley .014 190cm BMW [place] Straight Cordis 6 Fr XB3.0 100cm Guide Catheter Medtronic 3.0 x 12 CAITIE FRONTIER NARCISO COMPLICATIONS No Complications PROCEDURE MEDICATIONS Fentanyl 50 mcg IV Versed 1 mg IV Oxygen: 2 L/min via nasal cannula Heparin given IA 10/05/2024 10:42:56 Heparin 5000 unit(s) IV 10/05/2024 10:47:10 Verapamil 2.5mg, Ntg 100mcgs, 3000 units of Heparin given IA 10/05/2024 10:42:56 SUMMARY OF HEMODYNAMIC DATA Time AIR REST ECG 08:54:01 ECG 10:23:59 AO 94/59 (75) SA 10:44:14 ECG 11:43:41 ECG 11:43:43 11:44:32 Signed By Yunior Amin MD On 10/05/2024 11:46:14 Yunior Amin MD
== END 2024-10-05 14:44 | disposition home or self-care (01) ==
PROVIDERS: PCP Internal Medicine; Referring Provider Specialist; Visit Provider Specialist
DX: I25.10 Atherosclerotic heart disease of native coronary artery without angina pectoris (principal); I10 Essential (primary) hypertension; Z95.5 Presence of coronary angioplasty implant and graft; F17.220 Nicotine dependence, chewing tobacco, uncomplicated
CPT/HCPCS: 92928; 93005; 99152; 99153; Q9967; C1725; C1769; C1874; C1887; C1894; C9600

== ENCOUNTER → 2024-10-19 | Outpatient (CLI) | payer OTHER, SELFPAY ==
[2024-10-19 13:42] LABS: AST(SGOT) 28 U/L (<=37); Alanine Aminotransfer ALT/SGPT 50 U/L (<=46); Albumin, Serum 4.8 g/dL (3.5-5.0); Alkaline Phosphatase 103 U/L (40-129); Bilirubin, Direct 0.27 mg/dL (0.00-0.30); Cholesterol 132 mg/dL (<=200); Globulin 2.6 g/dL (2.2-4.2); High Density Lipoprotein 37 mg/dL; Low Density Lipoprotein Calc. 76 mg/dL; Protein, Total 7.4 g/dL (5.9-8.4); Total Bilirubin 0.65 mg/dL (0.00-1.30); Triglycerides 97 mg/dL; Very Low Density Lipoprotein 19 mg/dL (5-40); cholesterol:hdl ratio screen 3.62
[2024-10-20 16:08] LABS: Lipoprotein A <8.4 nmol/L (<75.0)
== END | disposition home or self-care (01) ==
LOC: LAB 10:51
PROVIDERS: PCP Internal Medicine; Referring Provider Physician Assistant Medical; Visit Provider Physician Assistant Medical
DX: Z95.5 Presence of coronary angioplasty implant and graft (principal); E78.5 Hyperlipidemia, unspecified
CPT/HCPCS: 36415; 80061; 80076; 83695